=== PATIENT | female | born 1975 | race Caucasian/White ===

== ENCOUNTER → 2017-07-02 | Outpatient (CLI) | payer BC ==
--- NOTE | 2017-07-02 17:06 | XR ---
EXAMINATION TYPE: XR chest 2V DATE OF EXAM: 07/02/2017 COMPARISON: NONE HISTORY: Persistent cough and asthma TECHNIQUE: Frontal and lateral views of the chest are obtained. FINDINGS: There is no focal air space opacity, pleural effusion, or pneumothorax seen. There is bro nchial wall thickening. The cardiac silhouette size is enlarged although patient is rotated. The os seous structures are intact. IMPRESSION: Suspect cardiomegaly. Correlate for reactive airways disease.
== END ==
LOC: RADXRYALE 16:04
PROVIDERS: ATTEND Internal Medicine
DX: J45.41 Moderate persistent asthma with (acute) exacerbation (principal)
CPT/HCPCS: 71020

== ENCOUNTER 2018-03-19 04:32 | Observation (INO) | payer BC, OTHER ==
[2018-03-19] MEDS ORDERED: SODIUM CHLORIDE 0.9% 1,000 ML IV STA (04:59)
[2018-03-19] MEDS ORDERED: KETOROLAC 30 MG/ML 1 ML VIAL IVP STA (04:59)
[2018-03-19] MEDS ORDERED: METOCLOPRAMIDE 5 MG/ML 2 ML VIAL IVP STA (04:59)
--- NOTE | 2018-03-19 05:02 | ED ---
General Adult HPI - General Source: patient, RN notes reviewed Mode of arrival: ambulatory Limitations: no limitations <Obi Rock - Last Filed: 03/19/18 05:00> <Miguel Chavarria - Last Filed: 03/19/18 08:16> - General Chief complaint: Abdominal Pain Stated complaint: gallbladder attack Time Seen by Provider: 03/19/18 04:48 - History of Present Illness Initial comments: Patient is a pleasant 42-year-old female presenting to the emergency Department with abdominal discomfort. Patient has a known history of gallbladder problems. Patient was sent to have her gallbladder removed back in June however was told she needed to bring $1500 with her and did not have a procedure done. Symptoms are similar to previous gallbladder problems. Patient has had previous ultrasound. Patient did eat pizza around 11 PM. Onset of symptoms tonight was around 2 AM. Symptoms have been waxing and waning. Patient has had nausea with one episode of vomiting. Discomfort is right upper abdomen. No radiation. No fevers. (Obi Rock) - Related Data Home Medications Medication Instructions Recorded Confirmed Albuterol Sulfate [Proair Hfa] 1 - 2 puff INHALATION RT-Q6H PRN 04/01/16 Citalopram Hydrobromide 20 mg PO DAILY 04/01/16 07/23/17 [Citalopram HBr] Fluticasone/Salmeterol [Advair 1 puff INHALATION RT-BID 04/01/16 07/23/17 250-50 Diskus] Levothyroxine Sodium [Synthroid] 75 mcg PO DAILY 04/01/16 07/23/17 Metoprolol Succinate (ER) [Toprol 100 mg PO DAILY 04/01/16 07/23/17 Xl] Montelukast [Singulair] 10 mg PO DAILY 04/01/16 07/23/17 Multivitamins, Thera [Multivitamin] 1 tab PO DAILY 04/01/16 07/23/17 Ranitidine HCl [Zantac] 150 mg PO HS 04/01/16 07/23/17 amLODIPine BESYLATE/BENAZEPRIL 1 cap PO DAILY 04/01/16 07/23/17 [Lotrel 5-20 mg Capsule] Previous Rx's Medication Instructions Recorded Ibuprofen [Motrin] 800 mg PO Q6HR PRN #20 tab 04/01/16 Allergies Allergy/AdvReac Type Severity Reaction Status Date / Time latex AdvReac Itching Verified 03/19/18 04:41 Review of Systems ROS Other: All systems not noted in ROS Statement are negative. Constitutional: Denies: fever Eyes: Denies: eye pain ENT: Denies: ear pain Respiratory: Denies: cough Cardiovascular: Denies: chest pain Endocrine: Denies: fatigue Gastrointestinal: Reports: abdominal pain, nausea, vomiting Genitourinary: Denies: dysuria Musculoskeletal: Denies: back pain Skin: Denies: rash Neurological: Denies: headache <Obi Rock Last Filed: 03/19/18 05:00> ROS Other: All systems not noted in ROS Statement are negative. <Miguel Chavarria - Last Filed: 03/19/18 08:16> ROS Statement: Those systems with pertinent positive or pertinent negative responses have been documented in the HPI. Past Medical History Past Medical History: Asthma, Hypertension, Thyroid Disorder History of Any Multi-Drug Resistant Organisms: None Reported Past Surgical History: Orthopedic Surgery Past Psychological History: No Psychological Hx Reported Smoking Status: Former smoker Past Alcohol Use History: Occasional Past Drug Use History: None Reported <Obi Rock Last Filed: 03/19/18 05:00> General Exam Limitations: no limitations General appearance: alert, in no apparent distress Head exam: Present: atraumatic Eye exam: Present: normal appearance Neck exam: Present: normal inspection Respiratory exam: Present: normal lung sounds bilaterally Cardiovascular Exam: Present: regular rate, normal rhythm Expanded Peripheral pulses: 2+: Dorsalis Pedis (R), Dorsalis Pedis (L) GI/Abdominal exam: Present: soft, tenderness (Moderate right upper quadrant tenderness), normal bowel sounds. Absent: distended, guarding, rebound, rigid, pulsatile mass Extremities exam: Present: normal inspection Back exam: Present: normal inspection. Absent: tenderness Neurological exam: Present: alert Psychiatric exam: Present: normal affect, normal mood Skin exam: Present: normal color <Obi Rock Last Filed: 03/19/18 05:00> Vital Signs 03/19/18 03/19/18 03/19/18 04:39 06:01 06:58 Temperature 97.9 F 98.3 F Pulse Rate 69 70 64 Respiratory 18 18 Rate Blood Pressure 194/112 177/81 191/90 O2 Sat by Pulse 100 98 97 Oximetry 08/01/18 07:17 Temperature Pulse Rate 65 Respiratory 18 Rate Blood Pressure 171/74 O2 Sat by Pulse 96 Oximetry Medical Decision Making <Obi Rock - Last Filed: 03/19/18 05:00> - Lab Data Result diagrams: 03/19/18 05:10 03/19/18 05:10 - Radiology Data Radiology results: report reviewed (Review the imaging and report or is evidence of cholelithiasis.), image reviewed <Miguel Chavarria - Last Filed: 03/19/18 08:16> - Medical Decision Making I did reevaluate the patient she still has pain initially was 11 severity she still has moderate pain at this time. The patient was evaluated by the on- call surgeon Dr. Mariscal. The patient was requesting admission today and due to the intractable pain this is reasonable. The patient was examined by Dr. Mariscal patient will be admitted and the patient her are in agreement with this. (Miguel Chavarria) - Lab Data Lab Results 03/19/18 03/19/18 03/19/18 Range/Units 05:10 05:10 05:10 WBC 7.3 (3.8-10.6) k/uL RBC 4.18 (3.80-5.40) m/uL Hgb 12.1 (11.4-16.0) gm/dL Hct 37.3 (34.0-46.0) % MCV 89.3 (80.0-100.0) fL MCH 28.8 (25.0-35.0) pg MCHC 32.3 (31.0-37.0) g/dL RDW 13.5 (11.5-15.5) % Plt Count 289 (150-450) k/uL Neutrophils % 60 % Lymphocytes % 23 % Monocytes % 6 % Eosinophils % 7 % Basophils % 0 % Neutrophils # 4.4 (1.3-7.7) k/uL Lymphocytes # 1.7 (1.0-4.8) k/uL Monocytes # 0.4 (0-1.0) k/uL Eosinophils # 0.5 (0-0.7) k/uL Basophils # 0.0 (0-0.2) k/uL PT 9.8 (9.0-12.0) sec INR 1.0 (<1.2) APTT 31.8 H (22.0-30.0) sec Sodium 140 (137-145) mmol/L Potassium 3.7 (3.5-5.1) mmol/L Chloride 100 (98-107) mmol/L Carbon Dioxide 30 (22-30) mmol/L Anion Gap 10 mmol/L BUN 13 (7-17) mg/dL Creatinine 0.78 (0.52-1.04) mg/dL Est GFR (CKD-EPI)AfAm >90 (>60 ml/min/1.73 sqM) Est GFR (CKD-EPI)NonAf >90 (>60 ml/min/1.73 sqM) Glucose 106 H (74-99) mg/dL Calcium 10.1 (8.4-10.2) mg/dL Total Bilirubin 0.3 (0.2-1.3) mg/dL AST 21 (14-36) U/L ALT 30 (9-52) U/L Alkaline Phosphatase 79 (38-126) U/L Total Protein 7.5 (6.3-8.2) g/dL Albumin 4.7 (3.5-5.0) g/dL Amylase 38 (30-110) U/L Lipase 104 (23-300) U/L Disposition <Obi Rock - Last Filed: 03/19/18 05:00> <Miguel Chavarria - Last Filed: 03/19/18 08:16> Clinical Impression: Intractable abdominal pain, Biliary colic Disposition: ADMITTED IP TO THIS [facility] Condition: Stable Referrals: Marce Childs MD [Primary Care Provider] - 1-2 days
[2018-03-19 05:20] LABS: Basophils % (A) 0 %; Eosinophils # (A) 0.5 k/uL (0-0.7); Eosinophils % (A) 7 %; HCT 37.3 % (34.0-46.0); HGB 12.1 gm/dL (11.4-16.0); Lymphocytes # (A) 1.7 k/uL (1.0-4.8); Lymphocytes % (A) 23 %; MCH 28.8 pg (25.0-35.0); MCHC 32.3 g/dL (31.0-37.0); MCV 89.3 fL (80.0-100.0); Mean Platelet Volume 7.1; Monocytes # (A) 0.4 k/uL (0-1.0); Monocytes % (A) 6 %; Neutrophils # (A) 4.4 k/uL (1.3-7.7); Neutrophils % (A) 60 %; Platelet Count 289 k/uL (150-450); RBC 4.18 m/uL (3.80-5.40); RDW 13.5 % (11.5-15.5); WBC 7.3 k/uL (3.8-10.6)
[2018-03-19 05:33] LABS: Partial Thromboplastin Time 31.8 sec (22.0-30.0); Prothrombin Time 9.8 sec (9.0-12.0)
[2018-03-19 05:36] LABS: ALT 30 U/L (9-52); AST 21 U/L (14-36); Albumin 4.7 g/dL (3.5-5.0); Alkaline Phosphatase 79 U/L (38-126); Amylase 38 U/L (30-110); Anion Gap 10 mmol/L; Blood Urea Nitrogen 13 mg/dL (7-17); Calcium 10.1 mg/dL (8.4-10.2); Carbon Dioxide 30 mmol/L (22-30); Chloride 100 mmol/L (98-107); Glucose 106 mg/dL (74-99); Lipase 104 U/L (23-300); Potassium 3.7 mmol/L (3.5-5.1); Sodium 140 mmol/L (137-145); Total Bilirubin 0.3 mg/dL (0.2-1.3); Total Protein 7.5 g/dL (6.3-8.2)
--- NOTE | 2018-03-19 06:19 | XR ---
EXAM: XR Kub CLINICAL HISTORY: ITS.REASON XR Reason: abdominal pain TECHNIQUE: Upright views abdomen COMPARISON: 07/23/17 FINDINGS/IMPRESSION: Limited by body habitus. Flanks clipped. Bowel gas pattern appears nonobstructive. No subdiaphragmatic free air is seen. Possible organomegaly as on prior. Possible calcified density seen to the right of L4. Urinary tract calculus not excluded. Could correlate with ultrasound and/or CT, as clinically indicated.
[2018-03-19] MEDS ORDERED: HYDROmorphone 1 MG/ML 1 ML SYRINGE IVP STA (06:35)
--- NOTE | 2018-03-19 07:45 | US ---
EXAMINATION TYPE: US gallbladder DATE OF EXAM: 03/19/2018 COMPARISON: US 2017 CLINICAL HISTORY: Pain. RUQ pain and N/V x 1 day, history of cholelithiasis EXAM MEASUREMENTS: Liver Length: 19.3 cm Gallbladder Wall: 0.2 cm CBD: 0.6 cm Right Kidney: 11.6 x 4.7 x 5.6 cm Difficult and limited study due to patient body habitus Pancreas: visualized portions wnl, limited by overlying midline bowel gas Liver: enlarged, course echotexture. This most commonly relates to mild hepatic steatosis and limits evaluation for hepatic masses. Gallbladder: 2.0cm non mobile echogenic shadowing stone seen, wall measures wnl Evidence for sonographic Martinez's sign: yes CBD: Upper limits of normal Right Kidney: wnl IMPRESSION: 1. Cholelithiasis without current sonographic evidence of acute cholecystitis however the common bile duct is upper limits of normal and therefore correlation with serum laboratory values is recommended . 2. As seen on the prior exam of 07/23/2017 sonographic findings suggesting mild degree of hepatic stea tosis.
[2018-03-19 08:13] LABS: Amorphous Sediment,Urine Rare /hpf; Appearance,Urine Clear (Clear); Bilirubin,Urine Negative (Negative); Blood,Urine Moderate (Negative); Color,Urine Yellow; Glucose,Urine (UA) Negative (Negative); Hyaline Casts,Urine 4 /lpf (0-2); Ketones,Urine Negative (Negative); Leukocyte Esterase,Urine Negative (Negative); Mucus,Urine Few /hpf; Nitrite,Urine Negative (Negative); PH, Urine 5.5 (5.0-8.0); Protein,Urine 1+ (Negative); RBC,Urine 8 /hpf (0-5); Specific Gravity,Urine 1.024 (1.001-1.035); Squamous Epithelial Cell,Urine <1 /hpf (0-4); Urobilinogen,Urine <2.0 mg/dL (<2.0); WBC,Urine 1 /hpf (0-5)
[2018-03-19] MEDS ORDERED: NALOXONE 0.4 MG/ML 1 ML VIAL IV PRN (08:16)
[2018-03-19] MEDS ORDERED: ONDANSETRON 4 MG/2 ML VIAL IVP PRN (08:16)
--- NOTE | 2018-03-19 08:19 | ED ---
Medical Decision Making - Lab Data Result diagrams: 03/19/18 05:10 03/19/18 05:10 Lab Results 03/19/18 03/19/18 03/19/18 Range/Units 05:10 05:10 05:10 WBC 7.3 (3.8-10.6) k/uL RBC 4.18 (3.80-5.40) m/uL Hgb 12.1 (11.4-16.0) gm/dL Hct 37.3 (34.0-46.0) % MCV 89.3 (80.0-100.0) fL MCH 28.8 (25.0-35.0) pg MCHC 32.3 (31.0-37.0) g/dL RDW 13.5 (11.5-15.5) % Plt Count 289 (150-450) k/uL Neutrophils % 60 % Lymphocytes % 23 % Monocytes % 6 % Eosinophils % 7 % Basophils % 0 % Neutrophils # 4.4 (1.3-7.7) k/uL Lymphocytes # 1.7 (1.0-4.8) k/uL Monocytes # 0.4 (0-1.0) k/uL Eosinophils # 0.5 (0-0.7) k/uL Basophils # 0.0 (0-0.2) k/uL PT 9.8 (9.0-12.0) sec INR 1.0 (<1.2) APTT 31.8 H (22.0-30.0) sec Sodium 140 (137-145) mmol/L Potassium 3.7 (3.5-5.1) mmol/L Chloride 100 (98-107) mmol/L Carbon Dioxide 30 (22-30) mmol/L Anion Gap 10 mmol/L BUN 13 (7-17) mg/dL Creatinine 0.78 (0.52-1.04) mg/dL Est GFR (CKD-EPI)AfAm >90 (>60 ml/min/1.73 sqM) Est GFR (CKD-EPI)NonAf >90 (>60 ml/min/1.73 sqM) Glucose 106 H (74-99) mg/dL Calcium 10.1 (8.4-10.2) mg/dL Total Bilirubin 0.3 (0.2-1.3) mg/dL AST 21 (14-36) U/L ALT 30 (9-52) U/L Alkaline Phosphatase 79 (38-126) U/L Total Protein 7.5 (6.3-8.2) g/dL Albumin 4.7 (3.5-5.0) g/dL Amylase 38 (30-110) U/L Lipase 104 (23-300) U/L Urine Color Urine Appearance (Clear) Urine pH (5.0-8.0) Ur Specific [place] (1.001-1.035) Urine Protein (Negative) Urine Glucose (UA) (Negative) Urine Ketones (Negative) Urine Blood (Negative) Urine Nitrite (Negative) Urine Bilirubin (Negative) Urine Urobilinogen (<2.0) mg/dL Ur Leukocyte Esterase (Negative) Urine RBC (0-5) /hpf Urine WBC (0-5) /hpf Ur Squamous Epith Cells (0-4) /hpf Amorphous Sediment (None) /hpf Hyaline Casts (0-2) /lpf Urine Mucus (None) /hpf 03/19/18 Range/Units 08:00 WBC (3.8-10.6) k/uL RBC (3.80-5.40) m/uL Hgb (11.4-16.0) gm/dL Hct (34.0-46.0) % MCV (80.0-100.0) fL MCH (25.0-35.0) pg MCHC (31.0-37.0) g/dL RDW (11.5-15.5) % Plt Count (150-450) k/uL Neutrophils % % Lymphocytes % % Monocytes % % Eosinophils % % Basophils % % Neutrophils # (1.3-7.7) k/uL Lymphocytes # (1.0-4.8) k/uL Monocytes # (0-1.0) k/uL Eosinophils # (0-0.7) k/uL Basophils # (0-0.2) k/uL PT (9.0-12.0) sec INR (<1.2) APTT (22.0-30.0) sec Sodium (137-145) mmol/L Potassium (3.5-5.1) mmol/L Chloride (98-107) mmol/L Carbon Dioxide (22-30) mmol/L Anion Gap mmol/L BUN (7-17) mg/dL Creatinine (0.52-1.04) mg/dL Est GFR (CKD-EPI)AfAm (>60 ml/min/1.73 sqM) Est GFR (CKD-EPI)NonAf (>60 ml/min/1.73 sqM) Glucose (74-99) mg/dL Calcium (8.4-10.2) mg/dL Total Bilirubin (0.2-1.3) mg/dL AST (14-36) U/L ALT (9-52) U/L Alkaline Phosphatase (38-126) U/L Total Protein (6.3-8.2) g/dL Albumin (3.5-5.0) g/dL Amylase (30-110) U/L Lipase (23-300) U/L Urine Color Yellow Urine Appearance Clear (Clear) Urine pH 5.5 (5.0-8.0) Ur Specific [place] 1.024 (1.001-1.035) Urine Protein 1+ H (Negative) Urine Glucose (UA) Negative (Negative) Urine Ketones Negative (Negative) Urine Blood Moderate H (Negative) Urine Nitrite Negative (Negative) Urine Bilirubin Negative (Negative) Urine Urobilinogen <2.0 (<2.0) mg/dL Ur Leukocyte Esterase Negative (Negative) Urine RBC 8 H (0-5) /hpf Urine WBC 1 (0-5) /hpf Ur Squamous Epith Cells <1 (0-4) /hpf Amorphous Sediment Rare H (None) /hpf Hyaline Casts 4 H (0-2) /lpf Urine Mucus Few H (None) /hpf Disposition Clinical Impression: Intractable abdominal pain, Biliary colic, Cholelithiasis Disposition: ADMITTED IP TO THIS [facility] Condition: Stable Referrals: Marce Childs MD [Primary Care Provider] - 1-2 days
--- NOTE | 2018-03-19 08:21 | P.GSHP ---
History of Present Illness H&P Date: 03/19/18 Chief Complaint: Right upper quadrant pain This a 42-year-old female who presents to the emergency room with complaints of right upper quadrant pain. Patient states that she has a history of gallstones. Her also performed today shows evidence of cholelithiasis. She states her pain was 11 out of 10. The pain is decreased to 2 out of 10 currently. Past Medical History Past Medical History: Asthma, Hypertension, Thyroid Disorder History of Any Multi-Drug Resistant Organisms: None Reported Past Surgical History: Orthopedic Surgery Past Psychological History: No Psychological Hx Reported Smoking Status: Former smoker Past Alcohol Use History: Occasional Past Drug Use History: None Reported Medications and Allergies Home Medications Medication Instructions Recorded Confirmed Type Albuterol Sulfate [Proair Hfa] 1 - 2 puff INHALATION RT-Q6H PRN 04/01/16 History Citalopram Hydrobromide 20 mg PO DAILY 04/01/16 07/23/17 History [Citalopram HBr] Fluticasone/Salmeterol [Advair 1 puff INHALATION RT-BID 04/01/16 07/23/17 History 250-50 Diskus] Ibuprofen [Motrin] 800 mg PO Q6HR PRN #20 tab 04/01/16 07/23/17 Rx Levothyroxine Sodium [Synthroid] 75 mcg PO DAILY 04/01/16 07/23/17 History Metoprolol Succinate (ER) [Toprol 100 mg PO DAILY 04/01/16 07/23/17 History Xl] Montelukast [Singulair] 10 mg PO DAILY 04/01/16 07/23/17 History Multivitamins, Thera [Multivitamin] 1 tab PO DAILY 04/01/16 07/23/17 History Ranitidine HCl [Zantac] 150 mg PO HS 04/01/16 07/23/17 History amLODIPine BESYLATE/BENAZEPRIL 1 cap PO DAILY 04/01/16 07/23/17 History [Lotrel 5-20 mg Capsule] Allergies Allergy/AdvReac Type Severity Reaction Status Date / Time latex AdvReac Itching Verified 03/19/18 08:20 Surgical - Exam Vital Signs Temp Pulse Resp BP Pulse Ox 97.9 F 69 18 194/112 100 03/19/18 04:39 03/19/18 04:39 03/19/18 04:39 03/19/18 04:39 03/19/18 04:39 - General Morbid obesity BMI 53 well developed, no distress - Eyes PERRL - ENT normal pinna - Neck no masses - Respiratory normal expansion - Cardiovascular Rhythm: regular - Abdomen Mild right quadrant tenderness Abdomen: soft Results - Labs 03/19/18 05:10 03/19/18 05:10 Abnormal Lab Results - Last 24 Hours (Table) 03/19/18 03/19/18 03/19/18 Range/Units 05:10 05:10 08:00 APTT 31.8 H (22.0-30.0) sec Glucose 106 H (74-99) mg/dL Urine Protein 1+ H (Negative) Urine Blood Moderate H (Negative) Urine RBC 8 H (0-5) /hpf Amorphous Sediment Rare H (None) /hpf Hyaline Casts 4 H (0-2) /lpf Urine Mucus Few H (None) /hpf Diabetes panel 03/19/18 Range/Units 05:10 Sodium 140 (137-145) mmol/L Potassium 3.7 (3.5-5.1) mmol/L Chloride 100 (98-107) mmol/L Carbon Dioxide 30 (22-30) mmol/L BUN 13 (7-17) mg/dL Creatinine 0.78 (0.52-1.04) mg/dL Glucose 106 H (74-99) mg/dL Calcium 10.1 (8.4-10.2) mg/dL AST 21 (14-36) U/L ALT 30 (9-52) U/L Alkaline Phosphatase 79 (38-126) U/L Total Protein 7.5 (6.3-8.2) g/dL Albumin 4.7 (3.5-5.0) g/dL Calcium panel 03/19/18 Range/Units 05:10 Calcium 10.1 (8.4-10.2) mg/dL Albumin 4.7 (3.5-5.0) g/dL Pituitary panel 03/19/18 Range/Units 05:10 Sodium 140 (137-145) mmol/L Potassium 3.7 (3.5-5.1) mmol/L Chloride 100 (98-107) mmol/L Carbon Dioxide 30 (22-30) mmol/L BUN 13 (7-17) mg/dL Creatinine 0.78 (0.52-1.04) mg/dL Glucose 106 H (74-99) mg/dL Calcium 10.1 (8.4-10.2) mg/dL Adrenal panel 03/19/18 Range/Units 05:10 Sodium 140 (137-145) mmol/L Potassium 3.7 (3.5-5.1) mmol/L Chloride 100 (98-107) mmol/L Carbon Dioxide 30 (22-30) mmol/L BUN 13 (7-17) mg/dL Creatinine 0.78 (0.52-1.04) mg/dL Glucose 106 H (74-99) mg/dL Calcium 10.1 (8.4-10.2) mg/dL Total Bilirubin 0.3 (0.2-1.3) mg/dL AST 21 (14-36) U/L ALT 30 (9-52) U/L Alkaline Phosphatase 79 (38-126) U/L Total Protein 7.5 (6.3-8.2) g/dL Albumin 4.7 (3.5-5.0) g/dL - Imaging US - abdomen: report reviewed (Cholelithiasis) Assessment and Plan Assessment: The pneumatic lithiasis. Patient will undergo laparoscopic cholecystectomy today.
[2018-03-19] MEDS: SODIUM CHLORIDE 0.9% 1,000 ML IV SCH (09:34)
[2018-03-19] MEDS: PANTOPRAZOLE 40 MG/10 ML VIAL IV SCH (09:35)
[2018-03-19] MEDS: HYDROmorphone 1 MG/ML 1 ML SYRINGE IVP PRN ×2 (10:54→13:58)
[2018-03-19] MEDS ORDERED: IV FLUID CONTINUATION 1,000 ML IV ONE ×2 (16:10)
[2018-03-19] MEDS ORDERED: LACTATED RINGERS 1,000 ML IV ONE (16:23)
[2018-03-19] MEDS ORDERED: HEPARIN SODIUM,PORCINE 5,000 UNIT/ML 1 ML VIAL SQ ONE (16:25)
[2018-03-19] MEDS ORDERED: ceFAZolin IN SWFI 2 GM/20 ML SYRINGE IVP ONE (18:00)
[2018-03-19] MEDS ORDERED: LIDOCAINE 1% INJ 10MG/ML (20 ML MDV) ONE (19:15)
[2018-03-19] MEDS ORDERED: fentaNYL (PF) 50 MCG/ML 2 ML AMP ONE (19:15)
[2018-03-19] MEDS ORDERED: ROCURONIUM BROMIDE 10 MG/ML 10 ML VIAL IV ONE (19:15)
[2018-03-19] MEDS ORDERED: PROPOFOL 10 MG/ML 20 ML VIAL IV ONE (19:15)
[2018-03-19] MEDS ORDERED: MIDAZOLAM 2 MG/2 ML VIAL ONE (19:15)
[2018-03-19] MEDS ORDERED: SUCCINYLCHOLINE CHLORIDE VIAL 200 MG/10 ML VIAL IV ONE (19:15)
[2018-03-19] MEDS ORDERED: GLYCOPYRROLATE 0.2 MG/ML 2 ML VIAL ONE (19:15)
[2018-03-19] MEDS ORDERED: NEOSTIGMINE 1 MG/ML 10 ML VIAL ONE (19:15)
[2018-03-19] MEDS ORDERED: SODIUM CHLORIDE 0.9% 50 ML with ceFAZolin 2,000 MG IV ONE ×2 (19:17)
[2018-03-19] MEDS ORDERED: BUPIVACAIN-EPI 0.5%-1:200,000 30 ML VIAL SQ ONE (19:29)
--- NOTE | 2018-03-19 19:52 | P.OP ---
Date of Procedure: 03/19/18 Preoperative Diagnosis: Cholecystitis Postoperative Diagnosis: Cholecystitis Procedure(s) Performed: Laparoscopic cholecystectomy Anesthesia: JOVANNY Surgeon: Faraz Mariscal Estimated Blood Loss (ml): 5 Pathology: other (Gallbladder) Condition: stable Disposition: PACU Description of Procedure: The patient was placed on the operating table. The patient received a general endotracheal tube anesthesia. The patients abdomen was prepped and draped in the usual sterile fashion. Through an infraumbilical stab incision, the fascia of the anterior abdominal wall was grasped with a pair of Kochers and then the Veress needle was placed in the peritoneal cavity. Position of the Veress needle was confirmed with positive drop test. The abdomen was then insufflated. After adequate insufflation, the 10 mm trocar was placed in the peritoneal cavity. Following this the laparoscope was placed in the peritoneal cavity. The patient was placed in the head-up, right side up position and then a 5 mm trocar was placed in the right lateral and right subcostal position under direct visualization. A 8 mm trocar was placed in the epigastric position. The gallbladder was grasped in the fundus and infundibulum. Traction on the gallbladder was placed in the lateral and the cephalad positions. The triangle of Calot was visualized.. The cystic duct was bluntly dissected until the union of the cystic duct and common bile duct was seen. The cystic duct was then divided and sealed with the Harmonic scissors. A PDS Endoloop was then placed throughout the cystic duct stump. The cystic artery divided and sealed with the Harmonic scissors. The gallbladder was then removed from the liver bed using Harmonic scissors. The gallbladder was then extracted through the epigastric port site. Operative field was checked for any bleeding spots and Harmonic scissors was used to coagulate the liver bed. The abdomen was irrigated. The trocars were removed. The skin was closed using interrupted 3-0 Vicryl suture. Dermabond dressing were applied. The patient tolerated the procedure well.
[2018-03-19] MEDS ORDERED: CITALOPRAM HYDROBROMIDE 20 MG TAB PO SCH (21:45)
[2018-03-19] MEDS ORDERED: MONTELUKAST 10 MG TAB PO SCH (21:45)
[2018-03-19] MEDS ORDERED: MULTIVITAMINS, THERA 1 EACH TAB PO SCH (21:45)
[2018-03-19] MEDS ORDERED: METOPROLOL SUCCINATE (ER) 100 MG TAB.ER.24H PO SCH (21:45)
[2018-03-20] MEDS: HYDROmorphone 1 MG/ML 1 ML SYRINGE IVP PRN (04:01)
[2018-03-20] MEDS: SODIUM CHLORIDE 0.9% 1,000 ML IV SCH (04:56)
[2018-03-20 07:46] VITALS: BP 126/72; PULSE 76; RESP 20; TEMP 98.8
[2018-03-20] MEDS: PANTOPRAZOLE 40 MG/10 ML VIAL IV SCH (09:09)
[2018-03-20] MEDS ORDERED: HYDROcodone/APAP 5-325MG 1 EACH TAB PO PRN (09:58)
[2018-03-20] MEDS ORDERED: ACETAMINOPHEN TAB 325 MG TAB PO PRN (10:11)
--- NOTE | 2018-03-20 12:50 | P.DS ---
Providers Date of admission: 03/19/18 08:17 Expected date of discharge: 03/20/18 Attending physician: Faraz Mariscal Consults: 03/19/18 19:52 Consult Physician Routine Consulting Provider: Becky Garcia Consult Reason/Comments: Medical management Do you want consulting provider notified?: Yes Primary care physician: Marce Childs [facility] Course: This a 42-year-old female who was admitted to hospital with acute cholecystitis. Please see hospital chart for details. Patient did well postoperatively. Procedures: Laparoscopic cholecystectomy Patient Condition at Discharge: Stable Plan - Discharge Summary Discharge Rx Participant: No New Discharge Prescriptions: New Docusate [Colace] 100 mg PO BID #20 capsule HYDROcodone/APAP 7.5-325MG [Keymar 7.5-325] 1 tab PO Q4H PRN 3 Days #18 tab PRN Reason: Pain No Action Ranitidine HCl [Zantac] 150 mg PO HS Multivitamins, Thera [Multivitamin] 1 tab PO HS Montelukast [Singulair] 10 mg PO HS Metoprolol Succinate (ER) [Toprol Xl] 100 mg PO HS Fluticasone/Salmeterol [Advair 250-50 Diskus] 1 puff INHALATION RT-DAILY Levothyroxine Sodium [Synthroid] 75 mcg PO DAILY Citalopram Hydrobromide [Citalopram HBr] 20 mg PO HS Ibuprofen [Motrin] 800 mg PO Q6HR PRN #20 tab PRN Reason: Pain Lisinopril-Hctz 20-25 mg [Zestoretic 20-25] 1 tab PO HS Discharge Medication List Citalopram Hydrobromide [Citalopram HBr] 20 mg PO HS 04/01/16 [History] Fluticasone/Salmeterol [Advair 250-50 Diskus] 1 puff INHALATION RT-DAILY [History] Ibuprofen [Motrin] 800 mg PO Q6HR PRN #20 tab 04/01/16 [Rx] Levothyroxine Sodium [Synthroid] 75 mcg PO DAILY 04/01/16 [History] Metoprolol Succinate (ER) [Toprol Xl] 100 mg PO HS 04/01/16 [History] Montelukast [Singulair] 10 mg PO HS 04/01/16 [History] Multivitamins, Thera [Multivitamin] 1 tab PO HS 04/01/16 [History] Ranitidine HCl [Zantac] 150 mg PO HS 04/01/16 [History] Lisinopril-Hctz 20-25 mg [Zestoretic 20-25] 1 tab PO HS 03/19/18 [History] Docusate [Colace] 100 mg PO BID #20 capsule 03/20/18 [Rx] HYDROcodone/APAP 7.5-325MG [Keymar 7.5-325] 1 tab PO Q4H PRN 3 Days #18 tab 03/20 [Rx] Follow up Appointment(s)/Referral(s): Marce Childs MD [Primary Care Provider] - 1-2 days Faraz Mariscal MD [STAFF PHYSICIAN] - 03/27/18 3:20 pm Activity/Diet/Wound Care/Special Instructions: Regular diet as tolerated. drink fluids. may shower but no tub baths or soaks. leave tape and surgical glue in place. No strenuous activity or heavy lifting. Call office for any fever, chills, increased pain not covered with pain meds, increased redness or discolored drainage from puncture sites or any concerns. Last received tylenol 65 mg at 1040.
--- NOTE | 2018-03-20 16:44 | P.CONS ---
History of Present Illness - Reason for Consult Asthma, hypertension, hypothyroidism - History of Present Illness 42-year-old female admitted for right upper quadrant abdominal pain found to have cholecystitis patient underwent the laparoscopic cholecystectomy. Patient denied any fever chills today patient pain is well-controlled on pain medications patient in any nausea vomiting. Patient did pass gas. A she was resumed on all her home medications with fairly controlled blood pressure. No shortness of breath or wheezing. Review of Systems REVIEW OF SYSTEMS: CONSTITUTIONAL: No fever, no malaise, no fatigue. HEENT: No recent visual problems or hearing problems. Denied any sore throat. CARDIOVASCULAR: No chest pain, orthopnea, PND, no palpitations, no syncope. PULMONARY: No shortness of breath, no cough, no hemoptysis. GASTROINTESTINAL: No diarrhea, no nausea, no vomiting, no abdominal pain. Normoactive bowel sounds. NEUROLOGICAL: No headaches, no weakness, no numbness. HEMATOLOGICAL: Denies any bleeding or petechiae. GENITOURINARY: Denies any burning micturition, frequency, or urgency. MUSCULOSKELETAL/RHEUMATOLOGICAL: Denies any joint pain, swelling, or any muscle pain. ENDOCRINE: Denies any polyuria or polydipsia. The rest of the 14-point review of systems is negative. Past Medical History Past Medical History: Asthma, Hypertension, Thyroid Disorder History of Any Multi-Drug Resistant Organisms: None Reported Past Surgical History: Orthopedic Surgery Past Psychological History: No Psychological Hx Reported Smoking Status: Former smoker Past Alcohol Use History: Occasional Past Drug Use History: None Reported Medications and Allergies Home Medications Medication Instructions Recorded Confirmed Type Citalopram Hydrobromide 20 mg PO HS 04/01/16 03/19/18 History [Citalopram HBr] Fluticasone/Salmeterol [Advair 1 puff INHALATION RT-DAILY 04/01/16 03/19/18 History 250-50 Diskus] Ibuprofen [Motrin] 800 mg PO Q6HR PRN #20 tab 04/01/16 03/19/18 Rx Levothyroxine Sodium [Synthroid] 75 mcg PO DAILY 04/01/16 03/19/18 History Metoprolol Succinate (ER) [Toprol 100 mg PO HS 04/01/16 03/19/18 History Xl] Montelukast [Singulair] 10 mg PO HS 04/01/16 03/19/18 History Multivitamins, Thera [Multivitamin] 1 tab PO HS 04/01/16 03/19/18 History Ranitidine HCl [Zantac] 150 mg PO HS 04/01/16 03/19/18 History Lisinopril-Hctz 20-25 mg 1 tab PO HS 03/19/18 03/19/18 History [Zestoretic 20-25] Docusate [Colace] 100 mg PO BID #20 capsule 03/20/18 Rx HYDROcodone/APAP 7.5-325MG [[place] 1 tab PO Q4H PRN 3 Days #18 tab 03/20/18 Rx 7.5-325] Allergies Allergy/AdvReac Type Severity Reaction Status Date / Time latex AdvReac Itching Verified 03/19/18 16:11 Physical Exam Vitals: Vital Signs Temp Pulse Resp BP Pulse Ox 03/20/18 07:33 98.8 F 76 20 126/72 95 03/20/18 03:55 97.5 F L 92 16 138/82 99 03/20/18 00:40 105 H 18 137/93 98 03/19/18 23:40 104 H 16 143/78 98 03/19/18 22:40 95 18 157/81 95 03/19/18 22:10 99 150/95 100 03/19/18 21:40 97 12 140/81 90 L 03/19/18 21:25 99 12 137/73 90 L 03/19/18 21:10 89 133/77 93 L 03/19/18 20:55 98.8 F 95 12 133/97 90 L 03/19/18 20:32 100 20 113/59 95 03/19/18 20:19 102 H 20 127/60 100 03/19/18 20:05 97.2 F L 112 H 20 131/63 94 L Intake and Output 03/20/18 03/20/18 03/20/18 06:59 14:59 22:59 Intake Total 200 Output Total 450 Balance -250 Intake: Oral 200 Output: Urine 450 Other: # Voids 1 PHYSICAL EXAMINATION: GENERAL: The patient is alert and oriented x3, not in any acute distress. Well developed, well nourished. HEENT: Pupils are round and equally reacting to light. EOMI. No scleral icterus. No conjunctival pallor. Normocephalic, atraumatic. No pharyngeal erythema. No thyromegaly. CARDIOVASCULAR: S1 and S2 present. No murmurs, rubs, or gallops. PULMONARY: Chest is clear to auscultation, no wheezing or crackles. ABDOMEN: Soft, nontender, nondistended, normoactive bowel sounds. No palpable organomegaly. Surgical site appeared to be clean MUSCULOSKELETAL: No joint swelling or deformity. EXTREMITIES: No cyanosis, clubbing, or pedal edema. NEUROLOGICAL: Gross neurological examination did not reveal any focal deficits. SKIN: No rashes. Results CBC & Chem 7: 03/19/18 05:10 03/19/18 05:10 Assessment and Plan Plan: -Asthma without any acute exacerbation will not need any systemic steroids continue with inhaled steroids. Patient can be discharged from medical perspective -Hypertension: Well controlled blood pressure on her home regimen no further recommendations regarding this perspective -Hypothyroidism patient can be resumed on levothyroxine -Cholecystitis status post cholecystectomy: Antibiotic management pain management as per primary service.
[2018-03-20] MEDS ORDERED: FAMOTIDINE 20 MG TAB PO SCH (21:00)
[2018-03-20] MEDS ORDERED: LISINOPRIL-HCTZ 20-25 MG 1 EACH TAB PO SCH (21:00)
[2018-03-21] MEDS ORDERED: LEVOTHYROXINE 75 MCG TAB PO SCH (06:30)
[2018-03-21] MEDS ORDERED: SYMBICORT 80-4.5 MCG INHALER INHALATION SCH (08:00)
== END 2018-03-20 13:23 | disposition home or self-care (01) ==
LOC: EC 04:32 → 6PED 08:17
PROVIDERS: ADMIT Surgery; ATTEND Surgery
DX: K80.12 Calculus of gallbladder with acute and chronic cholecystitis without obstruction (principal); J45.909 Unspecified asthma, uncomplicated; I10 Essential (primary) hypertension; E03.9 Hypothyroidism, unspecified; Z87.891 Personal history of nicotine dependence; Z79.899 Other long term (current) drug therapy; Z79.51 Long term (current) use of inhaled steroids; Z79.890 Hormone replacement therapy; Z91.040 Latex allergy status; E66.01 Morbid (severe) obesity due to excess calories; Z68.43 Body mass index [BMI] 50.0-59.9, adult
CPT/HCPCS: 47562; 96374 ×2; 96361 ×3; 96375 ×5; 96376; 99285; 36415; 88304; 80053; 82150; 83690; 85025; 85610; 85730; 81001; 81025; 74018; 76705; G0378 ×2; J2250; J0330; J1644; J2710; J2765; J2405; J2001; J3010; J1885; J1170 ×2; J0690 ×2; J2704; C9113 ×2

== ENCOUNTER → 2018-12-11 | Outpatient (CLI) | payer OTHER ==
--- NOTE | 2018-12-12 13:24 | MM ---
Reason for exam: screening (asymptomatic). Last mammogram was performed 2 years and 4 months ago. History: Family history of breast cancer in paternal aunt and breast cancer in grandmother. Took hormonal contraceptives for 5 years. Physical Findings: A clinical breast exam by your physician is recommended on an annual basis and results should be correlated with mammographic findings. MG Screening Mammo w CAD Bilateral CC and MLO view(s) were taken. Prior study comparison: August 01, 2016, bilateral MG 3d screening mammo w/cad. August 25, 2011, bilateral digital screening mammo w/CAD. There are scattered fibroglandular densities. There is no discrete abnormality. No significant changes when compared with prior studies. ASSESSMENT: Negative, BI-RAD 1 RECOMMENDATION: Routine screening mammogram of both breasts in 1 year.
== END | disposition home or self-care (01) ==
LOC: RADMAMWWP 07:40
PROVIDERS: ATTEND Internal Medicine
DX: Z12.31 Encounter for screening mammogram for malignant neoplasm of breast (principal)
CPT/HCPCS: 77067

== ENCOUNTER → 2020-07-25 | Outpatient (CLI) | payer OTHER | END | disposition home or self-care (01) | LOC: LABWHC1 13:26 | PROVIDERS: ATTEND Internal Medicine | DX: Z20.828 Contact with and (suspected) exposure to other viral communicable diseases (principal) | CPT/HCPCS: U0003; C9803 ==

== ENCOUNTER → 2020-09-02 | Outpatient (CLI) | payer BC ==
--- NOTE | 2020-09-05 08:31 | MM ---
Reason for exam: screening (asymptomatic). Last mammogram was performed 1 year and 9 months ago. History: Family history of breast cancer in paternal aunt and breast cancer in grandmother. Took hormonal contraceptives for 5 years. Physical Findings: A clinical breast exam by your physician is recommended on an annual basis and results should be correlated with mammographic findings. MG 3D Screening Mammo W/Cad Bilateral CC and MLO view(s) were taken. XCCL view(s) were taken of the left breast. Prior study comparison: December 11, 2018, bilateral MG screening mammo w CAD. August 01, 2016, bilateral MG 3d screening mammo w/cad. There are scattered fibroglandular densities. Prominent axillary nodes on both sides are unchanged. No significant changes when compared with prior studies. ASSESSMENT: Benign, BI-RAD 2 RECOMMENDATION: Routine screening mammogram of both breasts in 1 year.
== END | disposition home or self-care (01) ==
LOC: RADMAMWWP 10:47
PROVIDERS: ATTEND Internal Medicine
DX: Z12.31 Encounter for screening mammogram for malignant neoplasm of breast (principal)
CPT/HCPCS: 77063; 77067

== ENCOUNTER 2020-12-03 09:35 | Emergency (ER) | payer BC ==
[2020-12-03 09:45] VITALS: BP 165/82; PULSE 69; RESP 18; TEMP 97.9
[2020-12-03] MEDS ORDERED: CEPHALEXIN 500MG STARTER PACK 4 CAP BTL PO STA (10:10)
--- NOTE | 2020-12-03 10:43 | XR ---
EXAMINATION TYPE: XR tibia fibula LT DATE OF EXAM: 12/03/2020 CLINICAL HISTORY: Fall injury with pain TECHNIQUE: Two views of the left leg are obtained. COMPARISON: None. FINDINGS: There is no acute fracture or dislocation seen in the left tibia or fibula. Mild to modera te tricompartment joint space loss and mild spurring in the left knee. Visualized portion of the left ankle joint appears within normal limits. Mild to moderate diffuse subcutaneous edema is present. IMPRESSION: There is no acute fracture or dislocation seen in the left tibia or fibula.
--- NOTE | 2020-12-03 10:44 | XR ---
EXAMINATION TYPE: XR wrist complete RT DATE OF EXAM: 12/03/2020 CLINICAL HISTORY: Falling injury with pain TECHNIQUE: Frontal, lateral and oblique images of the right wrist are obtained. 4 view scaphoid vie w is performed. COMPARISON: None FINDINGS: There is no acute fracture/dislocation evident in the right wrist. The joint spaces in th e right wrist appear within normal limits. The overlying soft tissue appears unremarkable. IMPRESSION: There is no acute fracture or dislocation in the right wrist.
--- NOTE | 2020-12-03 10:52 | ED ---
Upper Extremity HPI - General Chief Complaint: Extremity Injury, Upper Stated Complaint: Fall, extremity injury Time Seen by Provider: 12/03/20 09:54 Source: patient Mode of arrival: ambulatory Limitations: no limitations - History of Present Illness Initial Comments: 45-year-old female presenting today for chief complaint of right wrist pain after fall 1 week ago. Patient states she fell week ago she states her right wrist is still sore. Patient states that she was just walking and tripped and fell. Patient states she extended her right wrist she states she also hit her right lower leg, patient states she sustained a small abrasion which now has some surrounding redness. Patient states that her main concern was her right wrist she denies any head injury injury to the neck chest abdomen left upper extremity or right lower extremity. pt ate that she does not have any difficulty ambulating. Patient remaining of review systems negative upon arrival patient appears well nontoxic in no acute distress - Related Data Home Medications Medication Instructions Recorded Confirmed Citalopram Hydrobromide 20 mg PO HS 04/01/16 03/19/18 [Citalopram HBr] Fluticasone/Salmeterol [Advair 1 puff INHALATION RT-DAILY 04/01/16 03/19/18 250-50 Diskus] Levothyroxine Sodium [Synthroid] 75 mcg PO DAILY 04/01/16 03/19/18 Metoprolol Succinate (ER) [Toprol 100 mg PO HS 04/01/16 03/19/18 Xl] Montelukast [Singulair] 10 mg PO HS 04/01/16 03/19/18 Multivitamins, Thera [Multivitamin] 1 tab PO HS 04/01/16 03/19/18 Ranitidine HCl [Zantac] 150 mg PO HS 04/01/16 03/19/18 Lisinopril-Hctz 20-25 mg 1 tab PO HS 03/19/18 03/19/18 [Zestoretic 20-25] Previous Rx's Medication Instructions Recorded Ibuprofen [Motrin] 800 mg PO Q6HR PRN #20 tab 04/01/16 Docusate [Colace] 100 mg PO BID #20 capsule 03/20/18 HYDROcodone/APAP 7.5-325MG [[place] 1 tab PO Q4H PRN 3 Days #18 tab 03/20/18 7.5-325] Cephalexin [Keflex] 500 mg PO Q6HR 7 Days #28 cap 12/03/20 Allergies Allergy/AdvReac Type Severity Reaction Status Date / Time latex AdvReac Itching Verified 12/03/20 09:42 Review of Systems ROS Statement: Those systems with pertinent positive or pertinent negative responses have been documented in the HPI. ROS Other: All systems not noted in ROS Statement are negative. Past Medical History Past Medical History: Asthma, Hypertension, Thyroid Disorder History of Any Multi-Drug Resistant Organisms: None Reported Past Surgical History: Orthopedic Surgery Past Psychological History: Anxiety Smoking Status: Former smoker Past Alcohol Use History: Occasional Past Drug Use History: None Reported General Exam - General Exam Comments Initial Comments: General: The patient is awake and alert, in no distress Eye: +3 mm pupils are equal, round and reactive to light, extra-ocular movements are intact. No nystagmus. There is normal conjunctiva bilaterally. No signs of icterus. Ears, nose, mouth and throat: There are moist mucous membranes and no oral lesions. Neck: The neck is supple, there is no tenderness or JVD. Cardiovascular: There is a regular rate and rhythm. No murmur, rub or gallop is appreciated. Respiratory: Lungs are clear to auscultation, respirations are non-labored, breath sounds are equal. No wheezes, stridor, rales, or rhonchi. Gastrointestinal: Soft, non-distended, non-tender abdomen without masses or organomegaly noted. There is no rebound or guarding present. Musculoskeletal: There is some proximal tibial's bruising, there is no obvious swelling, there is no wrist sweling of the right wrist or anatomical snuff box tenderness. Normal ROM of the wrists, knees and ankles b/l. can weight bear b/l. Strength 5/5. Sensation intact. Radial and DP pulses equal bilaterally 2+. Neurological: A&O x 3. CN II-XII intact grossly, There are no obvious motor or sensory deficits. Coordination appears grossly intact. Speech is normal. Skin: Skin is warm and dry. Small abrasion Psychiatric: Cooperative, appropriate mood & affect, normal judgment. Limitations: no limitations Course Vital Signs 12/03/20 09:42 Temperature 97.9 F Pulse Rate 69 Respiratory 18 Rate Blood Pressure 165/82 O2 Sat by Pulse 97 Oximetry Medical Decision Making - Medical Decision Making 45-year-old female presenting for chief complaint of fall imaging studies are negative for acute osseous process. Patient is weightbearing ambulating and has no anatomical snuffbox tenderness. She does have evidence of some faint redness surrounding a small abrasion over the left lower leg concerning for developing cellulitis patient denies fevers chills general malaise and overall appears nontoxic at this time and will be placed on oral abx with pcp f/u. if pain in right wrist persists she is to follow-up with orthopedic surgery patient is agreeable to this care plan as well as discharge at this time. Disposition Clinical Impression: Cellulitis of left lower leg, Right wrist pain, Left leg pain, Fall Disposition: HOME SELF-CARE Condition: Good Instructions (If sedation given, give patient instructions): Wrist Sprain (ED) Additional Instructions: Please use medication as discussed. Please follow-up with family doctor in the next 2 days. If pain persists follow-up with orthopedic surgery. Please return to emergency room if the symptoms increase or worsen or for any other concerns. Prescriptions: Cephalexin [Keflex] 500 mg PO Q6HR 7 Days #28 cap Is patient prescribed a controlled substance at d/c from ED?: No Referrals: Marce Childs MD [Primary Care Provider] - 1-2 days Time of Disposition: 10:51
== END 2020-12-03 11:04 | disposition home or self-care (01) ==
LOC: EC 09:35
DX: S80.12XA Contusion of left lower leg, initial encounter (principal); L03.116 Cellulitis of left lower limb; M25.531 Pain in right wrist; J45.909 Unspecified asthma, uncomplicated; I10 Essential (primary) hypertension; F41.9 Anxiety disorder, unspecified; Z87.891 Personal history of nicotine dependence; Z79.51 Long term (current) use of inhaled steroids; W01.10XA Fall on same level from slipping, tripping and stumbling with subsequent striking against unspecified object, initial encounter; Y93.01 Activity, walking, marching and hiking
CPT/HCPCS: 99284

== ENCOUNTER → 2022-03-23 | Outpatient (CLI) | payer BC ==
[2022-03-23 18:32] LABS: Basophils # (A) 0.05 X 10*3/uL (0.00-0.10); Basophils % (A) 0.7 %; Eosinophils # (A) 0.33 X 10*3/uL (0.04-0.35); Eosinophils % (A) 4.9 %; HCT 38.4 % (37.2-46.3); HGB 12.3 g/dL (12.0-15.0); Immature Grans, Automated 0.3 %; Lymphocytes # (A) 1.75 X 10*3/uL (0.90-5.00); Lymphocytes % (A) 25.8 %; MCH 29.9 pg (27.0-32.0); MCV 93.4 fL (80.0-97.0); Mean Platelet Volume 10.1 fL (9.5-12.2); Monocytes % (A) 8.9 %; NRBC Per 100 WBC 0 /100 WBCS (0.0-0.0); Neutrophils # (A) 4.02 X 10*3/uL (1.80-7.70); Neutrophils % (A) 59.4 %; Platelet Count 311 X 10*3/uL (140-440); RBC 4.11 X 10*6/uL (4.10-5.20); RDW 13.5 % (11.5-14.5); WBC 6.77 X 10*3/uL (4.50-10.00)
[2022-03-23 18:49] LABS: Albumin 4.7 g/dL (3.8-4.9); Albumin/Globulin Ratio 1.5 (1.60-3.17); Anion Gap 13.1 mmol/L (10.00-18.00); BUN/Creat Ratio 15.5 Ratio (12.00-20.00); Blood Urea Nitrogen 13.9 mg/dL (9.0-27.0); Calcium 10.3 mg/dL (8.7-10.3); Carbon Dioxide 25.9 mmol/L (20.0-27.5); Globulin 3.2 g/dL (1.6-3.3); Non-African American GFR(CKD) 75.9 (60.0-200.0); T4, Free (Free Thyroxine) 1.51 ng/dL (0.800-1.800); Total Bilirubin 0.6 mg/dL (0.30-1.20); Total Protein 7.9 g/dL (6.2-8.2)
== END | disposition home or self-care (01) ==
LOC: LABWHC1 10:42
PROVIDERS: ATTEND Internal Medicine
DX: Z00.01 Encounter for general adult medical examination with abnormal findings (principal); E78.00 Pure hypercholesterolemia, unspecified; E03.9 Hypothyroidism, unspecified; F41.1 Generalized anxiety disorder
CPT/HCPCS: 36415; 80053; 84439; 84443; 85025

== ENCOUNTER → 2022-06-04 | Outpatient (CLI) | payer BC ==
--- NOTE | 2022-06-04 17:15 | MM ---
Reason for Exam: Screening (asymptomatic). Last mammogram was performed 1 year(s) and 9 month(s) ago. Patient History: Menarche at age 9. First Full-Term at age 24. Patient used Hormonal Contraceptives for 5 years. Paternal grandmother had breast cancer, age 74. Paternal aunt had breast cancer, age 50. Last menstrual period: 05/21/2022 Risk Values: Lashell 5 year model risk: 1.1%. NCI Lifetime model risk: 11.0%. Prior Study Comparison: 08/01/2016 Bilateral Screening Mammogram, [facility]. 12/11/2018 Bilateral Screening Mammogram, [facility]. 09/02/2020 Bilateral Screening Mammogram, [facility]. Tissue Density: The breast tissue is almost entirely fat. Findings: Analyzed By CAD. At the 6:00 position of the left breast seen only on the CC view there is in the posterior position in area of asymmetric density approximately 11 to 12 cm from the nipple, spot compression view recommended. Overall Assessment: Incomplete: need additional imaging evaluation, BI-RAD 0 Management: Special View Mammogram of the left breast. A clinical breast exam by your physician is recommended on an annual basis and results should be correlated with mammographic findings. Electronically signed and approved by: Babatunde Borja M.D. Radiologis
== END | disposition home or self-care (01) ==
LOC: RADMAMWWP 07:00
PROVIDERS: ATTEND Internal Medicine
DX: Z12.31 Encounter for screening mammogram for malignant neoplasm of breast (principal); Z80.3 Family history of malignant neoplasm of breast
CPT/HCPCS: 77063; 77067

== ENCOUNTER → 2022-06-08 | Outpatient (CLI) | payer BC ==
--- NOTE | 2022-06-08 10:52 | MM ---
Reason for Exam: Additional evaluation requested from abnormal screening. Last screening mammogram was performed less than 1 month ago. Patient History: Menarche at age 9. First Full-Term at age 24. Patient used Hormonal Contraceptives for 5 years. Paternal grandmother had breast cancer, age 74. Paternal aunt had breast cancer, age 50. Risk Values: Lashell 5 year model risk: 1.1%. NCI Lifetime model risk: 11.0%. Prior Study Comparison: 12/11/2018 Bilateral Screening Mammogram, [facility]. 09/02/2020 Bilateral Screening Mammogram, [facility]. 06/04/2022 Bilateral MG 3D screening mammo w/cad, [facility]. Tissue Density: Left: The breast tissue is almost entirely fat. Findings: Analyzed By CAD. Area within the left breast posterior depth 12 cm from nipple measuring approximately 12 mm of increased asymmetric fibroglandular tissue that has been steadily increasing in conspicuity from 2012. No suspicious calcifications or other masses or distortions. Overall Assessment: Incomplete: need additional imaging evaluation, BI-RAD 0 Management: Diagnostic Breast Ultrasound of the left breast. A clinical breast exam by your physician is recommended on an annual basis and results should be correlated with mammographic findings. This exam should not preclude additional follow-up of suspicious palpable abnormalities. Results were given to the patient verbally at the time of exam. Electronically signed and approved by: Miguel Sanchez DO
--- NOTE | 2022-06-08 11:54 | USB ---
Reason for Exam: Additional evaluation requested from abnormal screening. Patient History: Menarche at age 9. First Full-Term at age 24. Patient used Hormonal Contraceptives for 5 years. Paternal grandmother had breast cancer, age 74. Paternal aunt had breast cancer, age 50. Risk Values: Lashell 5 year model risk: 1.1%. NCI Lifetime model risk: 11.0%. Technique: Method: Targeted. Prior Study Comparison: 12/11/2018 Bilateral Screening Mammogram, [facility]. 09/02/2020 Bilateral Screening Mammogram, [facility]. 06/04/2022 Bilateral MG 3D screening mammo w/cad, [facility]. Findings: The upper inner quadrant of the left breast, the axilla of the left breast and the retroareolar of the left breast were scanned. The inner upper quadrant was scanned along with the retroareolar region and axilla. No suspicious masses identified to correlate with mammographic findings. Overall Assessment: Benign, BI-RAD 2 Management: Screening Mammogram of both breasts in 1 year. A clinical breast exam by your physician is recommended on an annual basis and results should be correlated with mammographic findings. This exam should not preclude additional follow-up of suspicious palpable abnormalities. ??Results were given to the patient verbally at the time of exam. Electronically signed and approved by: Miguel Sanchez, DO
== END | disposition home or self-care (01) ==
LOC: RADMAMWWP 10:22
PROVIDERS: ATTEND Internal Medicine
DX: R92.8 Other abnormal and inconclusive findings on diagnostic imaging of breast (principal); Z80.3 Family history of malignant neoplasm of breast
CPT/HCPCS: 77061; 77065

== ENCOUNTER → 2022-09-14 | Outpatient (CLI) | payer BC ==
[2022-09-14 18:49] LABS: Basophils # (A) 0.04 X 10*3/uL (0.00-0.10); Basophils % (A) 0.5 %; Eosinophils # (A) 0.31 X 10*3/uL (0.04-0.35); Eosinophils % (A) 4.3 %; HCT 34.6 % (37.2-46.3); HGB 10.9 g/dL (12.0-15.0); Immature Grans, Automated 0.3 %; Lymphocytes # (A) 1.82 X 10*3/uL (0.90-5.00); MCH 30.2 pg (27.0-32.0); MCHC 31.5 g/dL (32.0-37.0); MCV 95.8 fL (80.0-97.0); Mean Platelet Volume 10.2 fL (9.5-12.2); Monocytes # (A) 0.54 X 10*3/uL (0.20-1.00); Monocytes % (A) 7.4 %; NRBC Per 100 WBC 0 /100 WBCS (0.0-0.0); Neutrophils # (A) 4.55 X 10*3/uL (1.80-7.70); Neutrophils % (A) 62.5 %; Platelet Count 281 X 10*3/uL (140-440); RBC 3.61 X 10*6/uL (4.10-5.20); RDW 13.2 % (11.5-14.5); WBC 7.28 X 10*3/uL (4.50-10.00)
[2022-09-14 19:10] LABS: ALT 20 U/L (8-44); AST 20 U/L (13-35); African American GFR (CKD) 99.7 (60.0-200.0); Albumin/Globulin Ratio 1.63 (1.60-3.17); Alkaline Phosphatase 84 U/L (41-126); BUN/Creat Ratio 12.18 Ratio (12.00-20.00); Blood Urea Nitrogen 9.8 mg/dL (9.0-27.0); Calcium 10.2 mg/dL (8.7-10.3); Carbon Dioxide 25.6 mmol/L (20.0-27.5); Chloride 97 mmol/L (96-109); Chol/HDL Ratio 4.99 Ratio; Globulin 3.1 g/dL (1.6-3.3); Glucose 79 mg/dL (70-110); LDL Cholesterol,Calculated 133.5 mg/dL (0.0-131.0); Non-African American GFR(CKD) 86.1 (60.0-200.0); Potassium 3.6 mmol/L (3.5-5.5); Sodium 136 mmol/L (135-145)
== END | disposition home or self-care (01) ==
LOC: LABWHC1 10:27
PROVIDERS: ATTEND Internal Medicine
DX: Z00.01 Encounter for general adult medical examination with abnormal findings (principal); E78.00 Pure hypercholesterolemia, unspecified; E03.9 Hypothyroidism, unspecified; I10 Essential (primary) hypertension; E66.01 Morbid (severe) obesity due to excess calories; F41.1 Generalized anxiety disorder
CPT/HCPCS: 36415; 80053; 80061; 84439; 84443; 85025

== ENCOUNTER → 2022-11-06 | Outpatient (CLI) | payer BC ==
--- NOTE | 2022-11-06 11:04 | XR ---
EXAMINATION TYPE: XR chest 2V DATE OF EXAM: 11/06/2022 COMPARISON: 07/02/2017 TECHNIQUE: PA and lateral views submitted. HISTORY: Shortness of breath with hemoptysis FINDINGS: The lungs are clear and there is no pneumothorax, pleural effusion, or focal pneumonia. Heart size normal and no overt failure. Osseous structures demonstrate hypertrophic and degenerative changes of the spine. Mild hyperinflation. IMPRESSION: 1. No acute process.
== END | disposition home or self-care (01) ==
LOC: RADXRYALE 10:33
PROVIDERS: ATTEND Internal Medicine
DX: J98.01 Acute bronchospasm (principal); R04.2 Hemoptysis; R06.02 Shortness of breath
CPT/HCPCS: 71046

== ENCOUNTER → 2023-06-29 | Outpatient (CLI) | payer BC ==
[2023-06-29 23:00] LABS: Basophils # (A) 0.04 X 10*3/uL (0.00-0.10); Basophils % (A) 0.6 %; Eosinophils # (A) 0.31 X 10*3/uL (0.04-0.35); Eosinophils % (A) 4.5 %; HGB 12.4 g/dL (12.0-15.0); Lymphocytes # (A) 1.91 X 10*3/uL (0.90-5.00); Lymphocytes % (A) 27.9 %; MCH 30.5 pg (27.0-32.0); MCHC 31.8 g/dL (32.0-37.0); MCV 96.1 FL (80.0-97.0); Mean Platelet Volume 10.1 FL (9.5-12.2); Monocytes # (A) 0.54 X 10*3/uL (0.20-1.00); Monocytes % (A) 7.9 %; NRBC Per 100 WBC 0 X 10*3/uL (0.00-0.01); Neutrophils # (A) 4.02 X 10*3/uL (1.80-7.70); Neutrophils % (A) 58.8 %; Platelet Count 310 X 10*3/uL (140-440); RBC 4.06 X 10*6/uL (4.10-5.20); RDW 13.3 % (11.5-14.5); WBC 6.84 X 10*3/uL (4.50-10.00)
[2023-06-29 23:40] LABS: ALT 22 U/L (8-44); AST 16 U/L (13-35); Albumin 4.7 g/dL (3.8-4.9); Albumin/Globulin Ratio 1.88 Ratio (1.60-3.17); Alkaline Phosphatase 70 U/L (41-126); BUN/Creat Ratio 16.91 Ratio (12.00-20.00); Blood Urea Nitrogen 18.6 mg/dL (9.0-27.0); Calcium 10.5 mg/dL (8.7-10.3); Carbon Dioxide 28.4 mmol/L (21.6-31.8); Chloride 97 mmol/L (96-109); Chol/HDL Ratio 5.68 Ratio; Globulin 2.5 g/dL (1.6-3.3); Glucose 98 mg/dL (70-110); LDL Cholesterol,Calculated 129.7 mg/dL (0.0-131.0); Potassium 4.4 mmol/L (3.5-5.5); Sodium 137 mmol/L (135-145); Total Bilirubin 0.4 mg/dL (0.3-1.2); Total Protein 7.2 g/dL (6.2-8.2)
== END | disposition home or self-care (01) ==
LOC: LABWHC1 10:20
PROVIDERS: ATTEND Internal Medicine
DX: I10 Essential (primary) hypertension (principal); E78.00 Pure hypercholesterolemia, unspecified; E03.9 Hypothyroidism, unspecified
CPT/HCPCS: 36415; 80053; 80061; 84443; 85025

== ENCOUNTER → 2024-01-28 | Outpatient (CLI) | payer BC ==
[2024-01-28 14:59] LABS: HCT 37.5 % (37.2-46.3); HGB 12.2 g/dL (12.0-15.0); MCH 30.5 pg (27.0-32.0); MCHC 32.5 g/dL (32.0-37.0); MCV 93.8 FL (80.0-97.0); Mean Platelet Volume 9.9 FL (9.5-12.2); NRBC Per 100 WBC 0 X 10*3/uL (0.00-0.01); Platelet Count 293 X 10*3/uL (140-440); RDW 13.3 % (11.5-14.5); WBC 8.05 X 10*3/uL (4.50-10.00)
[2024-01-28 15:00] LABS: Basophils # (A) 0.05 X 10*3/uL (0.00-0.10); Basophils % (A) 0.6 %; Eosinophils # (A) 0.45 X 10*3/uL (0.04-0.35); Eosinophils % (A) 5.6 %; Lymphocytes # (A) 1.88 X 10*3/uL (0.90-5.00); Lymphocytes % (A) 23.4 %; Monocytes % (A) 7.5 %; Neutrophils # (A) 5.04 X 10*3/uL (1.80-7.70); Neutrophils % (A) 62.5 %
[2024-01-28 15:07] LABS: ALT 26 U/L (8-44); AST 16 U/L (13-35); Albumin 4.7 g/dL (3.8-4.9); Albumin/Globulin Ratio 1.96 Ratio (1.60-3.17); Alkaline Phosphatase 74 U/L (41-126); Blood Urea Nitrogen 19.9 mg/dL (9.0-27.0); Calcium 9.8 mg/dL (8.7-10.3); Carbon Dioxide 25.9 mmol/L (21.6-31.8); Chloride 100 mmol/L (96-109); Chol/HDL Ratio 5.65 Ratio; Globulin 2.4 g/dL (1.6-3.3); Glucose 94 mg/dL (70-110); LDL Cholesterol,Calculated 136.9 mg/dL (0.0-131.0); Potassium 4.5 mmol/L (3.5-5.5); Sodium 139 mmol/L (135-145); Total Bilirubin 0.4 mg/dL (0.3-1.2); Total Protein 7.1 g/dL (6.2-8.2)
== END | disposition home or self-care (01) ==
LOC: LABWHC1 08:34
PROVIDERS: ATTEND Internal Medicine
DX: I10 Essential (primary) hypertension (principal); E03.9 Hypothyroidism, unspecified; E78.00 Pure hypercholesterolemia, unspecified
CPT/HCPCS: 36415; 80053; 80061; 84443; 85025

== ENCOUNTER → 2024-01-28 | Outpatient (CLI) | payer BC ==
--- NOTE | 2024-01-29 13:07 | MM ---
Reason for Exam: Screening (asymptomatic). Last mammogram was performed 1 year(s) and 8 month(s) ago. Patient History: Menarche at age 9. First Full-Term at age 24. Patient used Hormonal Contraceptives for 5 years. Paternal grandmother had breast cancer, age 74. Paternal aunt had breast cancer, age 50. Last menstrual period: 01/06/2024 Risk Values: Lashell 5 year model risk: 1.2%. NCI Lifetime model risk: 10.8%. Prior Study Comparison: 09/02/2020 Bilateral Screening Mammogram, [facility]. 06/04/2022 Bilateral MG 3D screening mammo w/cad, [facility]. 06/08/2022 Left MG 3D work up w/cad , [facility]. Tissue Density: The breasts are heterogeneously dense, which may obscure small masses. Findings: Analyzed By CAD. There is no suspicious group of microcalcifications or new suspicious mass in either breast. Overall Assessment: Benign, BI-RAD 2 Management: Screening Mammogram of both breasts in 1 year. . Patient should continue monthly self-breast exams. A clinical breast exam by your physician is recommended on an annual basis. This exam should not preclude additional follow-up of suspicious palpable abnormalities. Note on Lashell scores and lifetime risk: 1. A Lashell score greater than 3% is considered moderate risk. If this is the case, consider specialist referral to assess eligibility for a risk reducing agent. 2. If overall lifetime risk for the development of breast cancer is 20% or higher, the patient may qualify for future screening with alternating mammogram and breast MRI. Electronically signed and approved by: Armando Abdul M.D. Radiologis
== END | disposition home or self-care (01) ==
LOC: RADMAMWWP 08:13
PROVIDERS: ATTEND Internal Medicine
DX: Z12.31 Encounter for screening mammogram for malignant neoplasm of breast (principal); Z80.3 Family history of malignant neoplasm of breast
CPT/HCPCS: 77063; 77067

== ENCOUNTER → 2024-07-29 | Outpatient (CLI) | payer OTHER ==
--- NOTE | 2024-07-31 18:58 | CT ---
EXAMINATION TYPE: CT knee LT wo con DATE OF EXAM: 07/31/2024 6:41 AM COMPARISON: None. CLINICAL INDICATION: Female, 49 years old with history of M17.12 OA LEFT KNEE, Pre op [facility] protocol f or left knee. TECHNIQUE: [facility] presurgical planning of the left knee. Images were obtained in the axial plane at 2 m m thick sections through the hip and ankle and 1 mm thick sections through the knee. Reconstructed im ages in the coronal and sagittal plane are reviewed. Contrast used: mL of , (none if empty) Oral contrast used: (none if empty) CT DLP: 1467 mGycm, Automated exposure control for dose reduction was used. FINDINGS: Hip: Femoral head articulates with the acetabulum. Joint space is preserved. Knee: Left knee: There is loss of the medial compartment joint space. There is narrowing of lateral c ompartment joint space. Medial and lateral femoral condylar spurring is present. Some mild lateral ti bial plateau spurring is present. Note is made of degenerative changes within the medial compartment right knee is well. Some degenerat dina change lateral compartment right knee. Ankle: Some joint space narrowing through the ankle mortise is present. No acute fractures evident. IMPRESSION: 1. CT for [facility] knee presurgical planning. [facility], , 07/31/2024 6:56 PM
== END | disposition home or self-care (01) ==
LOC: RADCTMAIN 16:07
PROVIDERS: ATTEND Orthopaedic Surgery
DX: Z01.818 Encounter for other preprocedural examination (principal); M17.0 Bilateral primary osteoarthritis of knee

== ENCOUNTER → 2024-08-17 | Outpatient (CLI) | payer OTHER ==
[2024-08-17 09:40] LABS: INR 0.9 (<1.2); Partial Thromboplastin Time 30.2 sec (22.0-30.0); Prothrombin Time 10.3 sec (10.0-12.5)
[2024-08-17 15:30] LABS: ALT 59 U/L (8-44); AST 28 U/L (13-35); Albumin 4.3 g/dL (3.8-4.9); Albumin/Globulin Ratio 1.95 Ratio (1.60-3.17); Alkaline Phosphatase 91 U/L (41-126); BUN/Creat Ratio 19.67 Ratio (12.00-20.00); Blood Urea Nitrogen 17.7 mg/dL (9.0-27.0); Calcium 9.8 mg/dL (8.7-10.3); Carbon Dioxide 29.3 mmol/L (21.6-31.8); Chloride 93 mmol/L (96-109); Globulin 2.2 g/dL (1.6-3.3); Glucose 94 mg/dL (70-110); Potassium 4.1 mmol/L (3.5-5.5); Sodium 131 mmol/L (135-145); Total Bilirubin 0.3 mg/dL (0.3-1.2); Total Protein 6.5 g/dL (6.2-8.2)
[2024-08-17 15:33] LABS: HCT 34.6 % (37.2-46.3); HGB 10.8 g/dL (12.0-15.0); MCH 30.7 pg (27.0-32.0); MCHC 31.2 g/dL (32.0-37.0); MCV 98.3 FL (80.0-97.0); Mean Platelet Volume 9.5 FL (9.5-12.2); NRBC Per 100 WBC 0 X 10*3/uL (0.00-0.01); Platelet Count 274 X 10*3/uL (140-440); RBC 3.52 X 10*6/uL (4.10-5.20); RDW 13.4 % (11.5-14.5); WBC 7.66 X 10*3/uL (4.50-10.00)
== END | disposition home or self-care (01) ==
LOC: LABWHC1 08:54
PROVIDERS: ATTEND Orthopaedic Surgery
DX: Z01.818 Encounter for other preprocedural examination (principal); M17.12 Unilateral primary osteoarthritis, left knee; R00.1 Bradycardia, unspecified; Z22.322 Carrier or suspected carrier of Methicillin resistant Staphylococcus aureus
CPT/HCPCS: 36415; 80053; 83036; 85027; 85610; 85730; 87070; 93005

== ENCOUNTER 2024-08-28 07:14 | Day surgery (SDC) | payer OTHER ==
[~2024-08-28 07:14] MED LIST: TRANEXAMIC 1,000 MG/100ML-NACL 1,000 MG in SALINE 1 100ML.BAG IV PRN; TRANEXAMIC 1,000 MG/100ML-NACL 1,000 MG in SALINE 1 100ML.BAG IVPB PRN; VANCOMYCIN 1,000 MG in SODIUM CHLORIDE 0.9% 250 ML IVPB PRN
[2024-08-28] MEDS: LACTATED RINGERS 1,000 ML IV SCH (08:21)
[2024-08-28] MEDS: DOCUSATE 100 MG CAP PO PRN (08:27)
[2024-08-28] MEDS: oxyCODONE ER 10 MG TAB.ER.12H PO PRN (08:27)
[2024-08-28] MEDS: ACETAMINOPHEN TAB 500 MG TAB PO PRN (08:27)
[2024-08-28] MEDS: DEXAMETHASONE SOD PHOSPHATE 10 MG/ML 1 ML VIAL IV PRN (08:30)
[2024-08-28] MEDS: KETOROLAC 15 MG/ML 1 ML VIAL IVP PRN (08:30)
[2024-08-28] MEDS: ONDANSETRON 4 MG/2 ML VIAL IVP PRN (08:30)
[2024-08-28] MEDS: FAMOTIDINE 20 MG/2 ML VIAL IVP PRN (08:30)
[2024-08-28] MEDS: SCOPOLAMINE 1 MG/72 HR PATCH TRANSDERM STA (08:45)
[2024-08-28] MEDS: GABAPENTIN 300 MG CAP PO STA (09:10)
[2024-08-28] MEDS: MIDAZOLAM 2 MG/2 ML VIAL IV PRN (09:13)
[2024-08-28] MEDS: fentaNYL (PF) 50 MCG/ML 2 ML AMP IVP PRN (09:13)
[2024-08-28] MEDS: IV FLUID CONTINUATION 1,000 ML IV ONE (09:30)
--- NOTE | 2024-08-28 09:40 | P.ANPRN ---
Procedure Note - Anesthesia - Nerve Block Performed Left Adductor Canal Single Time Out Performed: Yes Date of Procedure: 08/28/24 Procedure Start Time: :12 Procedure Stop Time: :17 Location of Patient: PreOp Indication: Acute Post-Operative Pain, Requested by Surgeon Sedation Type: Sedate with meaningful contact maintained Preparation: Sterile Prep Position: Supine Needle Types: Pajunk Needle Gauge: 21 Ultrasound used to visualize needle placement: Yes Ultrasound used to observe medication spread: Yes Injectate: 0.5% Ropivacaine (see comment for volume) (20 ml + 10 ml NS + 4 mg Dexamethasone) Blood Aspirated: No Pain Paresthesia on Injection Noted: No Resistance on Injection: Normal Image Stored and Saved: Yes Events: Uneventful and Well Tolerated
--- NOTE | 2024-08-28 09:41 | P.ANPRN ---
Procedure Note - Anesthesia - Nerve Block Performed Left iPack Single Time Out Performed: Yes Date of Procedure: 08/28/24 Procedure Start Time: :18 Procedure Stop Time: : Location of Patient: PreOp Indication: Acute Post-Operative Pain, Requested by Surgeon Sedation Type: Sedate with meaningful contact maintained Preparation: Sterile Prep Position: Right Lateral Needle Types: [place]unk Needle Gauge: 21 Ultrasound used to visualize needle placement: Yes Ultrasound used to observe medication spread: Yes Injectate: 0.5% Ropivacaine (see comment for volume) (20 ml + 10 ml NS + 4 mg Dexamethasone) Blood Aspirated: No Pain Paresthesia on Injection Noted: No Resistance on Injection: Normal Image Stored and Saved: Yes Events: Uneventful and Well Tolerated
[2024-08-28] MEDS ORDERED: ROPIVACAINE 5 MG/ML 30 ML VIAL ONE (09:46)
[2024-08-28] MEDS ORDERED: PROPOFOL 10 MG/ML 20 ML VIAL IV ONE (09:46)
[2024-08-28] MEDS ORDERED: MIDAZOLAM 2 MG/2 ML VIAL ONE (09:46)
[2024-08-28] MEDS ORDERED: GLYCOPYRROLATE 0.2 MG/ML 2 ML VIAL ONE (09:46)
[2024-08-28] MEDS ORDERED: LIDOCAINE 1% INJ 10MG/ML (20 ML MDV) ONE (09:46)
[2024-08-28] MEDS ORDERED: TRANEXAMIC 1,000 MG/100ML-NACL PREMIX BAG ONE (09:46)
[2024-08-28] MEDS ORDERED: SODIUM CHLORIDE 0.9% (PF) 10 ML VIAL ONE (09:46)
[2024-08-28] MEDS ORDERED: SUCCINYLCHOLINE CHLORIDE 200 MG/10 ML VIAL IV ONE (09:46)
[2024-08-28] MEDS ORDERED: ROCURONIUM 10 MG/ML (5 ML VIAL) IV ONE (09:46)
[2024-08-28] MEDS ORDERED: NEOSTIGMINE 1 MG/ML 10 ML VIAL ONE (09:46)
[2024-08-28] MEDS ORDERED: fentaNYL (PF) 50 MCG/ML 2 ML AMP ONE (09:46)
[2024-08-28] MEDS ORDERED: DEXAMETHASONE SOD PHOSPHATE 4 MG/ML 1 ML VIAL ONE (09:46)
[2024-08-28] MEDS: ceFAZolin 3 GM in SODIUM CHLORIDE 0.9% 100 ML IVPB PRN (10:16)
[2024-08-28] MEDS: ROPIVACAINE/EPI/CLONIDINE/KET 50 ML SYRINGE MISCELLANE PRN (10:16)
[2024-08-28] MEDS: LACTATED RINGERS 1,000 ML IV ONE (11:15)
--- NOTE | 2024-08-28 11:41 | P.OP ---
Date of Procedure: 08/28/24 Preoperative Diagnosis: 1. Severe left knee osteoarthritis 2. BMI 49 Postoperative Diagnosis: Same Procedure(s) Performed: 1. Left total knee arthroplasty 2. Computer assisted musculoskeletal navigation using CT/MRI images 3. Application of negative pressure incisional wound VAC left knee, incision < 50sqcm, incision length 20cm Implants: 1. Jazz [employer] CR Femur Size #4 2. [employer]lon [place] Tibial Base Size #4 3. [employer] CS/PS poly Size #4, 9-mm 4. [place] Triathlon all poly patella, Size #32 Anesthesia: GETA, regional Surgeon: Juan Santos Allocation Analyst #1: Tigre Brasher Estimated Blood Loss (ml): 100 IV fluids (ml): 800 Pathology: none sent Condition: stable Disposition: PACU Indications for Procedure: I met with the patient preoperatively in the office setting and discussed treatment of their symptomatic knee arthritis. They failed a long course of nonsurgical treatment and elected to proceed with an elective total knee replacement. I discussed the potential risks and complications at length and gave them ample time to ask questions. Risks discussed included: risks from anesthesia, superficial site surgical infection, acute and/or chronic peripro sthetic joint infection, delayed wound healing, drainage, wound necrosis, instability, stiffness, stiffness requiring manipulation and/or revision surgery, damage to local blood vessels or nerves, aseptic loosening of the implants, extensor mechanism issues including disruption, patellar maltracking, avascular necrosis etc., continued or worsened knee pain, generalized dissatisfaction with surgical outcome, need for revision surgery, an inability to regain preinjury level of function, DVT, PE, other medical complications, and possibly loss of life or limb. The patient voiced their understanding that while these are the most common complications other less common complications are possible. They provided both their verbal and written consent to go forward with surgery. Operative Findings: Severe tricompartmental osteoarthritis Description of Procedure: The patient was identified in preoperative holding and the correct operative extremity was verified and marked with a marker. I reviewed the consent form with the patient at length. All of their questions were answered. The patient was given a block by anesthesia. They were then brought back to the operating room. They were transferred onto the operating room table where a general anesthetic, preoperative antibiotics, and tranexamic acid were administered by anesthesia. A tourniquet was applied to the proximal aspect of the operative extremity. The contralateral extremity was padded under the heel and secured to the operating room table with a nonsterile blue towel and tape. The ipsilateral arm was carefully draped across the patient's chest and secured with a pillow and foam. A post was applied over the lateral aspect of the ipsilateral thigh and a bolster was placed under the ipsilateral foot. I verified that the operative extremity was stable and the knee was flexed to 90. The operative extremity was then placed in a leg harper, nonsterile drapes were applied, and the extremity was prepped and draped sterilely in the standard sterile fashion. Prior to starting surgery timeout was performed identifying the correct patient, operative extremity, and procedure. The leg was then elevated, exsanguinated with an Esmarch bandage, and the tourniquet was inflated. An anterior midline incision was made sharply with a scalpel. Once I had dissected deep to the superficial fascial layer medial and lateral flaps were elevated. A medial parapatellar arthrotomy was created. Upon opening the knee joint there were diffuse arthritic changes in all 3 compartments. The anterior horn of the medial meniscus were sharply released and a medial release was performed around the posterior medial corner of the knee to facilitate retractor placement. The fat pad was excised with electrocautery. The patella was found to be severely arthritic and a provisional cut was made with a sagittal saw to facilitate mobilization of the extensor mechanism during the procedure. Remnants of the ACL and PCL were then excised from the notch. 4 mm pins were then placed within the incision in the medial distal femur and proximal tibia. Arrays were applied to the pins and I verified they were completely tightened. The knee was then registered with the ReferralMD robot and manipulations in implant position were made to balance the knee and opitmize implant position. Using the ReferralMD robotic saw all cuts were made in accordance with our plan. After all bony fragments had been removed the cuts were verified with the planar probe. The tibia was then subluxed forward and sized. The knee was brought into flexion and a lamina crop nutrition scientist was placed to allow removal of the meniscal remnants both medially and laterally as well as posterior osteophytes. Local anesthetic was then infiltrated around the joint capsule. Trial implants were then placed within the knee. Range of motion and collateral ligament tension was then evaluated. Adjustments in implant size and position were then made accordingly. Once the knee was felt to be appropriately balanced the Luigi pins were removed. The patella was then recut, sized, and punched. A trial patellar button was then placed. With the trial components in place, the patella tracked midline. The femur was then drilled and the trial component removed. The trial tibial component was then appropriately rotated, pinned, and prepared for the keel. All trial components were then removed from the knee. The knee was thoroughly irrigated with pulsatile lavage. Cement was prepared via vacuum mixing in a bowl on the back table. I then hand pressurized cement into the femur and tibia and placed the implants beginning with the tibial base tray and poly liner, femoral component, and finally the patellar button. All extruded cement was removed including from the pin sites. Once the cement had hardened the knee was evaluated one final time with the final polyethylene liner in place. The knee had full extension and flexion and felt stable to varus and valgus stress throughout the arc of motion. The tourniquet was released and with the tourniquet down the patella tracked midline. All bleeders were controlled with electrocautery. The knee was then soaked for 3 minutes with a dilute Betadine soak. The knee was thoroughly irrigated using 3 L of sterile saline and pulsatile lavage. A deep drain was placed. The extensor mechanism was then reapproximated using pop off Vicryl sutures followed by a running barbed suture. The knee was then closed in layers with a 0 strata fix for the deep fascial layer, 2-0 strata fix for the superficial subcutaneous layer and Monocryl and Steri-Strips for the skin. An incisional wound VAC was applied due to patient body habitus. It was hooked up to the cannister and had a good seal. I verified that all instrument, sponge, and sharp counts were correct. The patient was then transferred off the operating room table, extubated, and brought to recovery having tolerated the procedure well. Tigre Brasher PA-C was required as a skilled assistant plant manager due to the complexity of surgery for patient positioning, draping, exposure, retraction, closure of wound and application of dressing. PLAN: The patient can weight-bear as tolerated on the operative extremity. DVT prophylaxis with aspirin 81 mg twice a day based on preoperative risk stratification. Follow-up in the office in 2 weeks for wound check and x-rays of the knee including an AP and lateral.
[2024-08-28] MEDS ORDERED: NALOXONE 0.4 MG/ML 1 ML VIAL IV PRN (12:03)
[2024-08-28] MEDS ORDERED: NA PHOS,M-B/NA PHOS,DI-BA 133 ML ENEMA RECTAL PRN (12:03)
[2024-08-28] MEDS ORDERED: HYDROmorphone 0.5 MG/0.5 ML SYRINGE IVP PRN (12:03)
[2024-08-28] MEDS ORDERED: ACETAMINOPHEN TAB 325 MG TAB PO PRN (12:03)
[2024-08-28] MEDS ORDERED: HYDROcodone/APAP 5-325MG 1 EACH TAB PO PRN (12:03)
[2024-08-28] MEDS: HYDROmorphone 0.5 MG/0.5 ML SYRINGE IVP PRN (12:35)
--- NOTE | 2024-08-28 14:34 | XR ---
EXAMINATION TYPE: XR knee limited LT DATE OF EXAM: 08/28/2024 COMPARISON: 12/03/2020 CLINICAL INDICATION: Female, 49 years old with history of Evaluation for Postop abnormality and align ment; TECHNIQUE: 2 views FINDINGS: Images show placement of left total knee arthroplasty. Both distal femoral and proximal tib ial components of the prosthesis are well seated without periprosthetic fracture. Anterior soft tissu e swelling with soft minimal scattered soft tissue air related to recent operation. This seems to be a wound VAC anteriorly. Alignment grossly anatomic. IMPRESSION: Uncomplicated postoperative appearance left total knee arthroplasty. [facility], Workstation: [id number], 08/28/2024 2:31 PM
[2024-08-28] MEDS: HYDROcodone/APAP 10-325MG 1 EACH TAB PO PRN (16:00)
[2024-08-28] MEDS: SODIUM CHLORIDE 0.9% 1,000 ML IV SCH (16:01)
[2024-08-28] MEDS: ceFAZolin 3 GM in SODIUM CHLORIDE 0.9% 100 ML IVPB SCH (17:42)
[2024-08-28] MEDS: SENNOSIDES-DOCUSATE SODIUM 1 EACH TAB PO SCH (20:45)
[2024-08-28] MEDS: ASPIRIN 81 MG PO SCH (20:45)
[2024-08-28] MEDS ORDERED: ALBUTEROL NEBULIZED 2.5 MG/3 ML INHALATION PRN (22:05)
[2024-08-28] MEDS ORDERED: diphenhydrAMINE 25 MG CAP PO PRN (22:05)
[2024-08-28] MEDS: MULTIVITAMINS, THERA 1 EACH TAB PO SCH (23:00)
[2024-08-28] MEDS: METOPROLOL SUCCINATE (ER) 50 MG TAB.ER.24H PO SCH (23:00)
[2024-08-28] MEDS: VENLAFAXINE HCL ER 150 MG CAP PO SCH (23:01)
[2024-08-28] MEDS: HYDROmorphone 1 MG/ML 1 ML SYRINGE IVP PRN (23:30)
[2024-08-29] MEDS: LEVOTHYROXINE 125 MCG TAB PO SCH (05:09)
--- NOTE | 2024-08-29 07:56 | P.PN ---
Subjective Progress Note Date: 08/29/24 Patient is doing relatively well this morning. She states that her pain is controlled at this time, but has concerns that we discussed weaning her off IV Dilaudid. Objective - Vital Signs Vital signs: Vital Signs Temp 98.1 F 08/29/24 02:00 Pulse 70 08/29/24 02:00 Resp 18 08/29/24 02:00 BP 110/59 08/29/24 02:00 Pulse Ox 93 L 08/29/24 02:00 FiO2 Intake & Output 08/28/24 08/29/24 08/29/24 18:59 06:59 18:59 Intake Total 2049 1260 Output Total 100 Balance 1950 1260 Weight 131.7 kg Intake: IV 2049 Oral 1260 Output: Estimated Blood Loss 100 Other: # Voids 1 3 - Exam The patient appears comfortable. She is alert and oriented. She is able to answer questions. A focused exam of the left lower extremity was conducted. On inspection there is an intact incisional wound VAC. Her thigh and calf are soft. Femoral nerve function is intact. She is able to actively plantarflex and dorsiflex her ankle and her toes. Assessment and Plan Assessment: Postoperative day #1 status post left total knee replacement BMI 49 Plan: 1. Weightbearing as tolerated on the operative extremity. Up with assistance and a walker. 2. DVT prophylaxis with aspirin 81 mg twice a day 3. Physical therapy for gait training and mobilization 4. Leave surgical dressing in place. 5. Internal medicine for perioperative medical management 6. Disposition: Due to the patient's BMI and concerns for pain control perioperatively we will plan on keeping her an additional 24 hours. We discussed pain management this morning. We will work on weaning her off the IV Dilaudid to oral pain medications. Plan for discharge home tomorrow once she is more comfortable.
[2024-08-29] MEDS: PANTOPRAZOLE 40 MG TABLET PO SCH (08:57)
[2024-08-29] MEDS: hydrOXYzine pamoate 25 MG CAP PO PRN (08:57)
[2024-08-29] MEDS: oxyCODONE-APAP 5-325MG 1 EACH TAB PO PRN (08:57)
[2024-08-29] MEDS: lisinopriL 20 MG TAB PO SCH (08:57)
[2024-08-29 09:25] LABS: Basophils # (A) 0.02 X 10*3/uL (0.00-0.10); Basophils % (A) 0.1 %; Eosinophils # (A) 0.01 X 10*3/uL (0.04-0.35); Eosinophils % (A) 0.1 %; HCT 30.9 % (37.2-46.3); HGB 9.8 g/dL (12.0-15.0); Lymphocytes # (A) 1.38 X 10*3/uL (0.90-5.00); Lymphocytes % (A) 9.8 %; MCH 30.9 pg (27.0-32.0); MCHC 31.7 g/dL (32.0-37.0); MCV 97.5 FL (80.0-97.0); Mean Platelet Volume 9.7 FL (9.5-12.2); Monocytes # (A) 1.12 X 10*3/uL (0.20-1.00); Monocytes % (A) 7.9 %; NRBC Per 100 WBC 0 X 10*3/uL (0.00-0.01); Neutrophils # (A) 11.51 X 10*3/uL (1.80-7.70); Neutrophils % (A) 81.5 %; Platelet Count 310 X 10*3/uL (140-440); RBC 3.17 X 10*6/uL (4.10-5.20); WBC 14.12 X 10*3/uL (4.50-10.00)
[2024-08-29] MEDS: SYMBICORT 160-4.5 MCG INHALER INHALATION SCH (09:48)
[2024-08-29 10:18] LABS: BUN/Creat Ratio 22.67 Ratio (12.00-20.00); Blood Urea Nitrogen 20.4 mg/dL (9.0-27.0); Calcium 8.9 mg/dL (8.7-10.3); Carbon Dioxide 27.2 mmol/L (21.6-31.8); Chloride 98 mmol/L (96-109); Glucose 127 mg/dL (70-110); Magnesium 1.7 mg/dL (1.5-2.4); Potassium 4.4 mmol/L (3.5-5.5); Sodium 139 mmol/L (135-145)
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
[2024-08-29] MEDS: HYDROmorphone 0.5 MG/0.5 ML SYRINGE IVP PRN (18:04)
[2024-08-29 19:42] VITALS: RESP 16
[2024-08-29] MEDS: MONTELUKAST 10 MG TAB PO SCH (20:19)
--- NOTE | 2024-08-30 08:33 | P.DS ---
Providers Date of admission: Saturday08/28/2024 Attending physician: Juan Santos Consults: 08/28/24 12:03 Consult Physician Routine Consulting Provider: Becky Garcia Consult Reason/Comments: Postop medical management Do you want consulting provider notified?: Yes Primary care physician: Marce Childs [facility] Course: The patient is a very pleasant 49-year-old female who was admitted under my care this past Saturday. She had an uncomplicated total knee replacement. Following surgery she was transferred to the orthopedic floor. She received 2 doses of postoperative antibiotics. She was started on aspirin for DVT prophylaxis. Internal medicine was consulted and assisted with her perioperative medical management. She worked with physical therapy who ultimately recommended discharge home when her pain was controlled. On postoperative day #1 she had concerns about discharging due to elevated pain. She was kept an additional 24 hours for observation. The patient was seen on postoperative day #2 and was doing well. Her pain was much more tolerable. She was tolerating oral pain medications. She denied nausea or vomiting. Her incisional wound VAC was intact. Her thigh and calf were soft. Femoral nerve function was intact. She was able to actively plantarflex and dorsiflex her ankle and her toes. She was ultimately cleared to discharge home. Patient Condition at Discharge: Good Plan - Discharge Summary Discharge Rx Participant: Yes New Discharge Prescriptions: New HYDROcodone/APAP 5-325MG [[place] 5] 1 - 2 each PO Q6HR PRN #56 tab PRN Reason: Pain Sennosides-Docusate Sodium [Senokot-S] 1 tab PO BID PRN #60 tablet PRN Reason: Constipation Doxycycline Monohydrate 100 mg PO BID #30 cap Aspirin 81 mg PO BID #60 tab Diclofenac Sodium [Voltaren] 75 mg PO BID #60 tab Ondansetron [Zofran] 4 mg PO Q6HR PRN #30 tab PRN Reason: Nausea No Action Multivitamins, Thera [Multivitamin] 1 tab PO HS Montelukast [Singulair] 10 mg PO HS Metoprolol Succinate (ER) [Toprol Xl] 50 mg PO HS Lisinopril-Hctz 20-25 mg [Zestoretic 20-25] 1 tab PO DAILY diphenhydrAMINE HCL [Benadryl] 25 mg PO HS Albuterol Inhaler [Ventolin Hfa Inhaler] 1 - 2 puff INHALATION Q6H PRN PRN Reason: Shortness Of Breath Acetaminophen Tab [Tylenol Tab] 1,000 mg PO Q6HR Venlafaxine HCl ER [Effexor Xr] 150 mg PO HS Mometasone/Formoterol [Dulera 200 Mcg-5 Mcg Inhaler] 2 puff INHALATION BID Levothyroxine Sodium [Synthroid] 125 mcg PO DAILY Omeprazole 20 mg PO HS Discharge Medication List Metoprolol Succinate (ER) [Toprol Xl] 50 mg PO HS 04/01/16 [History] Montelukast [Singulair] 10 mg PO HS 04/01/16 [History] Multivitamins, Thera [Multivitamin] 1 tab PO HS 04/01/16 [History] Lisinopril-Hctz 20-25 mg [Zestoretic 20-25] 1 tab PO DAILY 03/19/18 [History] Acetaminophen Tab [Tylenol Tab] 1,000 mg PO Q6HR 08/25/24 [History] Albuterol Inhaler [Ventolin Hfa Inhaler] 1 - 2 puff INHALATION Q6H PRN 08/25/24 [History] Levothyroxine Sodium [Synthroid] 125 mcg PO DAILY 08/25/24 [History] Mometasone/Formoterol [Dulera 200 Mcg-5 Mcg Inhaler] 2 puff INHALATION BID 08/25/24 [History] Omeprazole 20 mg PO HS 08/25/24 [History] Venlafaxine HCl ER [Effexor Xr] 150 mg PO HS 08/25/24 [History] diphenhydrAMINE HCL [Benadryl] 25 mg PO HS 08/25/24 [History] Aspirin 81 mg PO BID #60 tab 08/28/24 [Rx] Diclofenac Sodium [Voltaren] 75 mg PO BID #60 tab 08/28/24 [Rx] HYDROcodone/APAP 5-325MG [[place] 5] 1 - 2 each PO Q6HR PRN #56 tab 08/28/24 [Rx] Ondansetron [Zofran] 4 mg PO Q6HR PRN #30 tab 08/28/24 [Rx] Sennosides-Docusate Sodium [Senokot-S] 1 tab PO BID PRN #60 tablet 08/28/24 [Rx] Doxycycline Monohydrate 100 mg PO BID #30 cap 08/30/24 [Rx] Follow up Appointment(s)/Referral(s): Juan Santos MD [Medical Doctor] - 2 Weeks Activity/Diet/Wound Care/Special Instructions: 1. Weight-bear as tolerated on your operative extremity unless instructed otherwise. Use a walker or other assistive device to ambulate. 2. Leave surgical dressing in place. If your dressing becomes saturated with blood, there is drainage, or the dressing becomes loose please contact the office. 3. It is okay to shower with your surgical dressing, but do not submerge in water (no hot tubs, bath's, swimming etc.) 4. Take your blood clot prevention medication as prescribed (aspirin, Eliquis, Xarelto, and Plavix are commonly prescribed medications for blood clot pre vention) 5. While taking [place] or Percocet for pain take a stool softener (Ex: Colace) and drink lots of water. 6. Keep all follow-up appointments as scheduled. You will usually be seen in 1-2 weeks following surgery. 7. Please contact the office with any questions or concerns [phone] Resume home omeprazole for GI prophylaxis Discharge Disposition: HOME WITH HOME HEALTH SERVICES
[2024-08-30 09:01] VITALS: BP 119/77; PULSE 90; TEMP 98
== END 2024-08-30 11:56 | disposition home health service (06) ==
LOC: OR 07:14 → 4SSUR 13:13 → OR 08-30 11:56
PROVIDERS: ATTEND Orthopaedic Surgery
DX: M17.12 Unilateral primary osteoarthritis, left knee (principal); E03.9 Hypothyroidism, unspecified; E66.9 Obesity, unspecified; F41.9 Anxiety disorder, unspecified; G47.30 Sleep apnea, unspecified; G89.18 Other acute postprocedural pain; I10 Essential (primary) hypertension; J45.909 Unspecified asthma, uncomplicated; K21.9 Gastro-esophageal reflux disease without esophagitis; Z68.42 Body mass index [BMI] 45.0-49.9, adult; Z79.51 Long term (current) use of inhaled steroids; Z79.82 Long term (current) use of aspirin; Z79.890 Hormone replacement therapy; Z79.899 Other long term (current) drug therapy; Z87.891 Personal history of nicotine dependence; Z96.652 Presence of left artificial knee joint
CPT/HCPCS: 0055T; 27447; 64447; 64999; S2900; 80048; 83735; 85025; 94640

== ENCOUNTER → 2024-12-21 | Outpatient (CLI) | payer OTHER ==
--- NOTE | 2024-12-21 11:25 | CT ---
INDICATION: Patient age:Female; 49 years old; Reason for study: [facility] Protocol for hip/knee replacement, M17.11 OSTEOARTHRITIS KNEE; [facility]. COMPARISON: None TECHNIQUE: Thin section axial CT imaging of the entire right lower extremity was performed per [facility] protocol, wi thout the administration of IV contrast. Additional axial images of the bilateral hips and ankles wit h other knee were also obtained. Reformatted images in coronal and sagittal views obtained. FINDINGS: There is no evidence of acute fracture or dislocation. The hips are grossly unremarkable. Calcification at the insertion of the left ischial tuberosity. Deg enerative changes of the pubic symphysis. Tricompartmental joint space narrowing with osteophytosis of the right knee. Consistent with moderate osteoarthritic changes. Small suprapatellar joint effusion. The ankles grossly unremarkable. Small bilateral posterior calcaneal and plantar calcaneal enthesophy kavya. Prominent left os trigonum. The visualized soft tissues appear grossly unremarkable within the limits of unenhanced CT. IMPRESSION: [facility] protocol for right knee joint replacement. [facility], , 12/21/2024 11:22 AM
== END | disposition home or self-care (01) ==
LOC: RADCTMAIN 10:32
PROVIDERS: ATTEND Orthopaedic Surgery
DX: M17.11 Unilateral primary osteoarthritis, right knee (principal); Z96.651 Presence of right artificial knee joint

== ENCOUNTER → 2024-12-21 | Outpatient (CLI) | payer OTHER ==
[2024-12-21 12:20] LABS: INR 0.9 (<1.2); Partial Thromboplastin Time 30.5 sec (22.0-30.0); Prothrombin Time 10.4 sec (10.0-12.5)
[2024-12-21 15:36] LABS: ALT 30 U/L (8-44); AST 23 U/L (13-35); Albumin 4.5 g/dL (3.8-4.9); Albumin/Globulin Ratio 1.73 Ratio (1.60-3.17); Alkaline Phosphatase 87 U/L (41-126); BUN/Creat Ratio 15.88 Ratio (12.00-20.00); Blood Urea Nitrogen 12.7 mg/dL (9.0-27.0); Calcium 10.2 mg/dL (8.7-10.3); Carbon Dioxide 30.1 mmol/L (21.6-31.8); Chloride 98 mmol/L (96-109); Globulin 2.6 g/dL (1.6-3.3); Glucose 109 mg/dL (70-110); Sodium 139 mmol/L (135-145); Total Bilirubin 0.3 mg/dL (0.3-1.2); Total Protein 7.1 g/dL (6.2-8.2)
[2024-12-21 15:42] LABS: HCT 36.6 % (37.2-46.3); HGB 11.6 g/dL (12.0-15.0); MCH 28.7 pg (27.0-32.0); MCHC 31.7 g/dL (32.0-37.0); MCV 90.6 FL (80.0-97.0); Mean Platelet Volume 9.9 FL (9.5-12.2); NRBC Per 100 WBC 0 X 10*3/uL (0.00-0.01); Platelet Count 316 X 10*3/uL (140-440); RBC 4.04 X 10*6/uL (4.10-5.20); RDW 14.1 % (11.5-14.5); WBC 8.01 X 10*3/uL (4.50-10.00)
== END | disposition home or self-care (01) ==
LOC: LABPAT 11:05
PROVIDERS: ATTEND Orthopaedic Surgery
DX: Z01.818 Encounter for other preprocedural examination (principal); Z22.322 Carrier or suspected carrier of Methicillin resistant Staphylococcus aureus
CPT/HCPCS: 80053; 83036; 85027; 85610; 85730; 87070; 93005

== ENCOUNTER 2025-01-20 13:31 | Day surgery (SDC) | payer OTHER ==
[2025-01-15 11:35] VITALS: BMI 53.1
[~2025-01-20 13:31] MED LIST changes: +ONDANSETRON 4 MG/2 ML VIAL IVP PRN; -VANCOMYCIN 1,000 MG in SODIUM CHLORIDE 0.9% 250 ML IVPB PRN; +fentaNYL (PF) 50 MCG/ML 2 ML AMP IV PRN
[2025-01-20] MEDS: IV FLUID CONTINUATION 1,000 ML IV ONE (13:49)
[2025-01-20] MEDS: LACTATED RINGERS 1,000 ML IV SCH (14:24)
[2025-01-20] MEDS: oxyCODONE ER 10 MG TAB.ER.12H PO PRN (14:24)
[2025-01-20] MEDS: ACETAMINOPHEN TAB 500 MG TAB PO PRN (14:24)
[2025-01-20] MEDS: DOCUSATE 100 MG CAP PO PRN (14:25)
[2025-01-20] MEDS: MIDAZOLAM 2 MG/2 ML VIAL IV ONE (14:27)
[2025-01-20] MEDS: fentaNYL (PF) 50 MCG/ML 2 ML AMP IVP STA (14:27)
[2025-01-20] MEDS ORDERED: LIDOCAINE 1% INJ 10MG/ML (20 ML MDV) ONE (14:41)
[2025-01-20] MEDS ORDERED: ROPIVACAINE 5 MG/ML 30 ML VIAL ONE (14:41)
[2025-01-20] MEDS ORDERED: TRANEXAMIC 1,000 MG/100ML-NACL PREMIX BAG ONE (14:41)
[2025-01-20] MEDS: FAMOTIDINE 20 MG/2 ML VIAL IVP PRN (14:41)
[2025-01-20] MEDS ORDERED: VASOPRESSIN 20 UNIT/ML 1 ML VIAL ONE (14:41)
[2025-01-20] MEDS ORDERED: NEOSTIGMINE 1 MG/ML 10 ML VIAL ONE (14:41)
[2025-01-20] MEDS ORDERED: SUCCINYLCHOLINE CHLORIDE 200 MG/10 ML VIAL IV ONE (14:41)
[2025-01-20] MEDS ORDERED: WATER FOR INJECTION, STERILE 10 ML VIAL IV ONE (14:41)
[2025-01-20] MEDS ORDERED: MIDAZOLAM 2 MG/2 ML VIAL ONE (14:41)
[2025-01-20] MEDS ORDERED: fentaNYL (PF) 50 MCG/ML 2 ML AMP ONE (14:41)
[2025-01-20] MEDS ORDERED: PROPOFOL 10 MG/ML 20 ML VIAL IV ONE (14:41)
[2025-01-20] MEDS ORDERED: SODIUM CHLORIDE 0.9% (PF) 10 ML VIAL ONE (14:41)
[2025-01-20] MEDS ORDERED: ROCURONIUM 10 MG/ML (5 ML VIAL) IV ONE (14:41)
[2025-01-20] MEDS ORDERED: DEXAMETHASONE SOD PHOSPHATE 4 MG/ML 1 ML VIAL ONE (14:41)
[2025-01-20] MEDS ORDERED: GLYCOPYRROLATE 0.2 MG/ML 2 ML VIAL ONE (14:41)
[2025-01-20] MEDS ORDERED: PHENYLEPHRINE-0.9% NACL SYG 1,000 MCG/10 ML SYRINGE ONE (14:41)
[2025-01-20] MEDS: DEXAMETHASONE SOD PHOSPHATE 10 MG/ML 1 ML VIAL IV PRN (14:42)
[2025-01-20] MEDS: ONDANSETRON 4 MG/2 ML VIAL IVP ONE (14:42)
[2025-01-20] MEDS: KETOROLAC 15 MG/ML 1 ML VIAL IVP PRN (14:42)
[2025-01-20] MEDS: ceFAZolin 3 GM in SODIUM CHLORIDE 0.9% 100 ML IVPB PRN (14:49)
--- NOTE | 2025-01-20 15:16 | P.ANPRN ---
Procedure Note - Anesthesia - Nerve Block Performed Right iPack Single Time Out Performed: Yes ([id number]) Date of Procedure: 01/20/25 Procedure Start Time: 14:34 Procedure Stop Time: 14:37 Location of Patient: PreOp Indication: Acute Post-Operative Pain, Requested by Surgeon Specifically requested for management of pain by DrCatrachito: Juan Santos Sedation Type: Sedate with meaningful contact maintained Preparation: Sterile Prep Position: Supine Catheter: None Needle Types: Pajunk Needle Gauge: 21 Ultrasound used to visualize needle placement: Yes Ultrasound used to observe medication spread: Yes Injectate: 0.5% Ropivacaine (see comment for volume) (20cc+10cc nacl pf+decadron 4mg) Blood Aspirated: No Pain Paresthesia on Injection Noted: No Resistance on Injection: Normal Image Stored and Saved: Yes Events: Uneventful and Well Tolerated
--- NOTE | 2025-01-20 15:16 | P.ANPRN ---
Procedure Note - Anesthesia - Nerve Block Performed Right Adductor Canal Single Time Out Performed: Yes ([id number]) Date of Procedure: 01/20/25 Procedure Start Time: 14:28 Procedure Stop Time: 14:33 Location of Patient: PreOp Indication: Acute Post-Operative Pain, Requested by Surgeon Specifically requested for management of pain by DrCatrachito: Juan Santos Sedation Type: Sedate with meaningful contact maintained Preparation: Sterile Prep Position: Supine Catheter: None Needle Types: Pajunk Needle Gauge: 21 Ultrasound used to visualize needle placement: Yes Ultrasound used to observe medication spread: Yes Injectate: 0.5% Ropivacaine (see comment for volume) (20cc+10cc nacl pf+decadron 4mg) Blood Aspirated: No Pain Paresthesia on Injection Noted: No Resistance on Injection: Normal Image Stored and Saved: Yes Events: Uneventful and Well Tolerated
[2025-01-20] MEDS: ROPIVACAINE/EPI/CLONIDINE/KET 50 ML SYRINGE MISCELLANE PRN (15:25)
[2025-01-20] MEDS ORDERED: hydrOXYzine pamoate 25 MG CAP PO PRN (16:55)
[2025-01-20] MEDS ORDERED: MAGNESIUM HYDROXIDE 2,400 MG/30 ML CUP PO PRN (16:55)
[2025-01-20] MEDS ORDERED: NA PHOS,M-B/NA PHOS,DI-BA 133 ML ENEMA RECTAL PRN (16:55)
[2025-01-20] MEDS ORDERED: bisacodyL 10 MG SUPP RECTAL PRN (16:55)
[2025-01-20] MEDS ORDERED: HYDROmorphone 0.5 MG/0.5 ML SYRINGE IVP PRN (16:55)
[2025-01-20] MEDS ORDERED: TEMAZEPAM 15 MG CAP PO PRN ×2 (16:55→22:00)
[2025-01-20] MEDS ORDERED: diazePAM 5 MG TAB PO PRN ×2 (16:55)
[2025-01-20] MEDS ORDERED: HYDROcodone/APAP 5-325MG 1 EACH TAB PO PRN (16:55)
[2025-01-20] MEDS ORDERED: NALOXONE 0.4 MG/ML 1 ML VIAL IV PRN (16:55)
[2025-01-20] MEDS ORDERED: ONDANSETRON 4 MG/2 ML VIAL IVP PRN (16:55)
--- NOTE | 2025-01-20 16:55 | P.OP ---
Date of Procedure: 01/20/25 Preoperative Diagnosis: 1. Severe right knee osteoarthritis 2. Prior left total knee replacement 3. BMI 54 Postoperative Diagnosis: Same Procedure(s) Performed: 1. Right total knee arthroplasty 2. Computer assisted musculoskeletal navigation using CT/MRI images 3. Application of negative pressure incisional wound VAC, right knee, DME, less than 50 cm, incision measuring 20 cm Implants: 1. Jazz Tri[employer]lon CR/PS Femur Size #4 2. Jazz [employer]lon Imbler Tibial Base Size #4 3. [place] [employer] CS poly Size #4, 9-mm 4. [place] Tri[employer]lon all poly patella, Size #32 Anesthesia: GETA, regional Surgeon: Juan Santos Tree Thinner #1: Tigre Brasher Estimated Blood Loss (ml): 100 IV fluids (ml): 800 Pathology: none sent Condition: stable Disposition: PACU Indications for Procedure: The patient is a very pleasant 49-year-old female who previously underwent a left total knee replacement. She did very well with this. She went on to develop severe right knee pain that was refractory to nonsurgical treatment. She had an elevated BMI and understands her risk of complication particularly infection and mechanical failure of her knee replacement. She elected to proceed with total knee replacement understanding her elevated risk of having a complication due to her weight. We discussed weight loss but the patient felt she was unable to lose more weight prior to surgery. Having done well after her contralateral knee replacement I agreed to perform surgery. I met with the patient preoperatively in the office setting and discussed treatment of their symptomatic knee arthritis. They failed a long course of nonsurgical treatment and elected to proceed with an elective total knee replacement. I discussed the potential risks and complications at length and gave them ample time to ask questions. Risks discussed included: risks from anesthesia, superficial site surgical infection, acute and/or chronic periprosthetic joint infection, delayed wound healing, drainage, wound necrosis, instability, stiffness, stiffness requiring manipulation and/or revision surgery, damage to local blood vessels or nerves, aseptic loosening of the implants, extensor mechanism issues including disruption, patellar maltracking, avascular necrosis etc., continued or worsened knee pain, generalized dissatisfaction with surgical outcome, need for revision surgery, an inability to regain preinjury level of function, DVT, PE, other medical complications, and possibly loss of life or limb. The patient voiced their understanding that while these are the most common complications other less common complications are possible. They provided both their verbal and written consent to go forward with surgery. Operative Findings: Severe tricompartmental osteoarthritis with complete loss of joint space. Description of Procedure: The patient was identified in preoperative holding and the correct operative extremity was verified and marked with a marker. I reviewed the consent form with the patient at length. All of their questions were answered. The patient was given a block by anesthesia. They were then brought back to the operating room. They were transferred onto the operating room table where a general anesthetic, preoperative antibiotics, and tranexamic acid were administered by anesthesia. A tourniquet was applied to the proximal aspect of the operative extremity. The contralateral extremity was padded under the heel and secured to the operating room table with a nonsterile blue towel and tape. The ipsilateral arm was carefully draped across the patient's chest and secured with a pillow and foam. A post was applied over the lateral aspect of the ipsilateral thigh and a bolster was placed under the ipsilateral foot. I verified that the operative extremity was stable and the knee was flexed to 90. The operative extremity was then placed in a leg harper, nonsterile drapes were applied, and the extremity was prepped and draped sterilely in the standard sterile fashion. Prior to starting surgery timeout was performed identifying the correct patient, operative extremity, and procedure. The leg was then elevated, exsanguinated with an Esmarch bandage, and the tourniquet was inflated. An anterior midline incision was made sharply with a scalpel. Once I had dissected deep to the superficial fascial layer medial and lateral flaps were elevated. A medial parapatellar arthrotomy was created. Upon opening the knee joint there were diffuse arthritic changes in all 3 compartments. The anterior horn of the medial meniscus were sharply released and a medial release was performed around the posterior medial corner of the knee to facilitate retractor placement. The fat pad was excised with electrocautery. Remnants of the ACL and PCL were then excised from the notch. 4 mm pins were then placed within the incision in the medial distal femur and proximal tibia. Arrays were applied to the pins and I verified they were completely tightened. The knee was then registered with the TellFi robot and manipulations in implant position were made to balance the knee and opitmize implant position. Using the Luigi robotic saw all cuts were made in accordance with our plan. After all bony fragments had been removed the cuts were verified with the planar probe. The tibia was then subluxed forward and sized. The knee was brought into flexion and a lamina benefits administrator was placed to allow removal of the meniscal remnants both medially and laterally as well as posterior osteophytes. Local anesthetic was then infiltrated around the joint capsule. Trial implants were then placed within the knee. Range of motion and collateral ligament tension was then evaluated. Adjustments in implant size and position were then made accordingly. Once the knee was felt to be appropriately balanced the Luigi pins were removed. The patella was then cut, sized, and punched. A trial patellar button was then placed. With the trial components in place, the patella tracked midline. The femur was then drilled and the trial component removed. The trial tibial component was then appropriately rotated, pinned, and prepared for the keel. All trial components were then removed from the knee. The knee was thoroughly irrigated with pulsatile lavage. Cement was prepared via vacuum mixing in a bowl on the back table. Once the cement had reached appropriate consistency, I hand pressurized cement into the tibia and gently impacted the tibial implant into place. Cement was carefully removed from around the tibial tray and the poly liner was tapped into placed, engaging the locking mechanism. The femur was then exposed and cement was hand pressurized into the cut surfaces. The femoral implant was gently tapped into place and cement was carefully removed. A wet lap sponge was used to wipe down the bearing surface of the femur and the knee was extended to further pressurize cement. With the knee extended, cement was pressurized into the cut surface of the patella and the patella button was placed and compressed with a clamp. All extruded cement was removed including from the pin sites. The knee was held in extension until the cement had fully hardened. Once the cement had hardened the knee was evaluated one final time with the final polyethylene liner in place. The knee had full extension and f lexion and felt stable to varus and valgus stress throughout the arc of motion. The tourniquet was released and with the tourniquet down the patella tracked midline. All bleeders were controlled with electrocautery. The knee was then soaked for 3 minutes with a dilute Betadine soak. The knee was thoroughly irrigated using 3 L of sterile saline and pulsatile lavage. The extensor mechanism was then reapproximated using pop off Vicryl sutures followed by a running barbed suture. The knee was then closed in layers with a 0 strata fix for the deep fascial layer, 2-0 strata fix for the superficial subcutaneous layer and Monocryl. Due to the patient's body habitus an incisional wound VAC was applied over her closed incision. I verified that all instrument, sponge, and sharp counts were correct. The patient was then transferred off the operating room table, extubated, and brought to recovery having tolerated the procedure well. Tigre Brasher PA-C was required as a skilled museum assistant due to the complexity of surgery for patient positioning, draping, exposure, retraction, closure of wound and application of dressing. PLAN: The patient can weight-bear as tolerated on the operative extremity. DVT prophylaxis with aspirin 81 mg twice a day based on preoperative risk stratification. Follow-up in the office in 2 weeks for wound check and x-rays of the knee including an AP and lateral.
[2025-01-20] MEDS: LACTATED RINGERS 1,000 ML IV ONE (17:16)
[2025-01-20] MEDS: HYDROmorphone 0.5 MG/0.5 ML SYRINGE IVP PRN (17:29)
[2025-01-20] MEDS: HYDROmorphone 0.5 MG/0.5 ML SYRINGE IVP ONE (17:40)
--- NOTE | 2025-01-20 18:09 | XR ---
EXAMINATION TYPE: XR knee limited RT DATE OF EXAM: 01/20/2025 5:42 PM COMPARISON: None. CLINICAL INDICATION: Female, 49 years old with history of Evaluation for Postop abnormality and align ment, pain TECHNIQUE: 2 view(s) obtained. FINDINGS: Tibial femoral component in place. No acute fracture or dislocation is evident. Postsurgical soft tis yoandy changes are evident. IMPRESSION: 1. No acute fracture post knee replacement [facility], , 01/20/2025 6:06 PM
[2025-01-20] MEDS: DEXAMETHASONE SOD PHOSPHATE 4 MG/ML 1 ML VIAL IV ONE (19:39)
[2025-01-20] MEDS: ASPIRIN 81 MG PO SCH (21:07)
[2025-01-20] MEDS: HYDROcodone/APAP 10-325MG 1 EACH TAB PO PRN (21:07)
[2025-01-20] MEDS: SENNOSIDES-DOCUSATE SODIUM 1 EACH TAB PO SCH (21:08)
[2025-01-20] MEDS: SODIUM CHLORIDE 0.9% 1,000 ML IV SCH (21:09)
[2025-01-20] MEDS: ceFAZolin 3 GM in SODIUM CHLORIDE 0.9% 100 ML IVPB SCH (23:02)
[2025-01-20] MEDS: HYDROmorphone 1 MG/ML 1 ML SYRINGE IVP PRN (23:10)
[2025-01-20] MEDS ORDERED: ALBUTEROL NEBULIZED 2.5 MG/3 ML INHALATION PRN (23:11)
[2025-01-20] MEDS: MONTELUKAST 10 MG TAB PO SCH (23:22)
[2025-01-20] MEDS: VENLAFAXINE HCL ER 150 MG CAP PO SCH (23:22)
[2025-01-20] MEDS: ACETAMINOPHEN TAB 500 MG TAB PO SCH (23:23)
[2025-01-20] MEDS: METOPROLOL SUCCINATE (ER) 50 MG TAB.ER.24H PO SCH (23:26)
[2025-01-21] MEDS: LEVOTHYROXINE 125 MCG TAB PO SCH (05:55)
--- NOTE | 2025-01-21 07:50 | P.PN ---
Subjective Progress Note Date: 01/21/25 No acute events overnight. Patient is doing well this morning. The pain in their knee is moderate to severe. They have walked to the bathroom with a walker and assistance. They deny chest pain or shortness of breath. Objective - Vital Signs Vital signs: Vital Signs Temp 97.5 F L 01/21/25 01:22 Pulse 97 01/21/25 01:22 Resp 18 01/21/25 01:22 BP 97/45 01/21/25 01:22 Pulse Ox 97 01/21/25 01:22 FiO2 Intake & Output 01/20/25 01/21/25 01/21/25 18:59 06:59 18:59 Intake Total 1300 Output Total 200 Balance 1100 Weight 142.6 kg Intake: IV 1300 Output: Estimated Blood Loss 200 Other: Voiding Method Toilet # Voids 1 - Exam Patient was examined at bedside. Patient is resting comfortably in bed. No apparent distress. They are awake, alert and able to answer questions. Inspection: The surgical wound VAC dressing is intact, there is no drainage or strikethrough. The skin surrounding the dressing is free of erythema. There is mild swelling in the operative thigh. Palpation: The operative calf is soft to compression. No calf tenderness. Neurovascular: Operative femoral nerve function is intact. The patient is able to actively plantarflex and dorsiflex their operative ankle and toes. Operative extremity sensation is intact to light touch throughout. Their operative foot appears well perfused, palpable dorsalis pedis pulse, and capillary refill under 2 seconds. Assessment and Plan Assessment: Postop day #1 status post right total knee arthroplasty for severe right knee osteoarthritis Right knee pain Plan: Weight-bear as tolerated on the operative extremity. Use a walker to ambulate. Leave surgical wound VAC dressing in place. Physical therapy for gait training and mobilization. We appreciate internal medicine for perioperative medical management. Disposition: Pending physical therapy. Plan on staying until tomorrow for pain control.
[2025-01-21] MEDS: SYMBICORT 160-4.5 MCG INHALER INHALATION SCH (08:35)
[2025-01-21 08:51] LABS: HCT 32.4 % (37.2-46.3); HGB 10.1 g/dL (12.0-15.0); MCH 29.3 pg (27.0-32.0); MCHC 31.2 g/dL (32.0-37.0); MCV 93.9 FL (80.0-97.0); Mean Platelet Volume 9.7 FL (9.5-12.2); Platelet Count 271 X 10*3/uL (140-440); RBC 3.45 X 10*6/uL (4.10-5.20); RDW 14.6 % (11.5-14.5); WBC 14.84 X 10*3/uL (4.50-10.00)
[2025-01-21 08:52] LABS: Basophils # (A) 0.03 X 10*3/uL (0.00-0.10); Basophils % (A) 0.2 %; Eosinophils # (A) 0 X 10*3/uL (0.04-0.35); Eosinophils % (A) 0 %; Lymphocytes # (A) 0.89 X 10*3/uL (0.90-5.00); Monocytes # (A) 0.48 X 10*3/uL (0.20-1.00); Monocytes % (A) 3.2 %; NRBC Per 100 WBC 0 X 10*3/uL (0.00-0.01); Neutrophils # (A) 13.37 X 10*3/uL (1.80-7.70); Neutrophils % (A) 90.1 %
--- NOTE | 2025-01-21 12:55 | P.CONS ---
History of Present Illness - Reason for Consult Consult date: 01/21/25 Medical management - History of Present Illness History of present illness; patient 49-year-old lady with past medical history significant for left knee arthroplasty, obesity who presented to the hospital for elective right total knee arthroplasty. Patient underwent left knee arthroplasty in the beginning of the year and that went very well. Patient has been having issues with her right knee and has been following up outpatient with orthopedics and they recommended right total knee arthroplasty which was scheduled for 01/20. Postoperatively intermittently requested for medical management REVIEW OF SYSTEMS: CONSTITUTIONAL: No fever, no malaise, no fatigue. HEENT: No recent visual problems or hearing problems. Denied any sore throat. CARDIOVASCULAR: No chest pain, orthopnea, PND, no palpitations, no syncope. PULMONARY: No shortness of breath, no cough, no hemoptysis. GASTROINTESTINAL: No diarrhea, no nausea, no vomiting, no abdominal pain. NEUROLOGICAL: No headaches, no weakness, no numbness. HEMATOLOGICAL: Denies any bleeding or petechiae. GENITOURINARY: Denies any burning micturition, frequency, or urgency. MUSCULOSKELETAL/RHEUMATOLOGICAL: Right knee pain ENDOCRINE: Denies any polyuria or polydipsia. The rest of the 14-point review of systems is negative. PHYSICAL EXAMINATION: GENERAL: The patient is alert and oriented x3, not in any acute distress. Well developed, well nourished. HEENT: Pupils are round and equally reacting to light. EOMI. No scleral icterus. No conjunctival pallor. Normocephalic, atraumatic. No pharyngeal erythema. No thyromegaly. CARDIOVASCULAR: S1 and S2 present. No murmurs, rubs, or gallops. PULMONARY: Chest is clear to auscultation, no wheezing or crackles. ABDOMEN: Soft, nontender, nondistended, normoactive bowel sounds. No palpable organomegaly. MUSCULOSKELETAL: Right knee surgical incision seen EXTREMITIES: No cyanosis, clubbing, or pedal edema. NEUROLOGICAL: Gross neurological examination did not reveal any focal deficits. SKIN: No rashes. Assessment and plan Right knee osteoarthritis status post right total knee arthroplasty Obesity BMI of 54 Monitor vital signs Monitor CBC Continue pain management per orthopedics Continue DVT prophylaxis per orthopedics Aggressive bowel regimen to prevent opioid-induced constipation Resume Toprol Resume Synthroid Resume breathing treatments with albuterol and home inhalers of Dulera PT and OT consulted Labs and medication were reviewed.. Continue same treatment. Continue with symptomatic treatment. Resume home medication. Monitor labs and vitals. DVT and GI prophylaxis. Further recommendations as per clinical course of the patient Dictation was produced using Kiko dictation software. please excuse any grammatical, word or spelling errors. Past Medical History Past Medical History: Asthma, GERD/Reflux, Hypertension, Osteoarthritis (OA), Thyroid Disorder History of Any Multi-Drug Resistant Organisms: None Reported Past Surgical History: Cholecystectomy, Joint Replacement, Orthopedic Surgery Additional Past Surgical History / Comment(s): BILAT KNEES SX,. LT TKA. COLONOSCOPY Past Anesthesia/Blood Transfusion Reactions: No Reported Reaction Past Psychological History: Anxiety, Depression Smoking Status: Former smoker Past Alcohol Use History: Occasional Additional Past Alcohol Use History / Comment(s): QUIT SMOKING 2001 Past Drug Use History: Marijuana Additional Drug Use History / Comment(s): USES MARIJUANA EDIBLES AND VAP PEN- AWARE NO USE FOR AT LEAST 24 HOURS PRIOR TO PROCEDURE - Past Family History Mother Family Medical History: Cancer Medications and Allergies Home Medications Medication Instructions Recorded Confirmed Type Metoprolol Succinate (ER) [Toprol 50 mg PO HS 04/01/16 01/20/25 History Xl] Montelukast [Singulair] 10 mg PO HS 04/01/16 01/20/25 History Multivitamins, Thera [Multivitamin] 1 tab PO HS 04/01/16 01/20/25 History Lisinopril-Hctz 20-25 mg 1 tab PO DAILY 03/19/18 01/20/25 History [Zestoretic 20-25] Acetaminophen Tab [Tylenol Tab] 1,000 mg PO Q6HR 08/25/24 01/20/25 History Albuterol Inhaler [Ventolin Hfa 1 - 2 puff INHALATION Q6H PRN 08/25/24 01/20/25 History Inhaler] Levothyroxine Sodium [Synthroid] 125 mcg PO DAILY 08/25/24 01/20/25 History Mometasone/Formoterol [Dulera 200 2 puff INHALATION BID 08/25/24 01/20/25 History Mcg-5 Mcg Inhaler] Omeprazole 20 mg PO HS 08/25/24 01/20/25 History Venlafaxine HCl ER [Effexor Xr] 150 mg PO HS 08/25/24 01/20/25 History diphenhydrAMINE HCL [Benadryl] 25 mg PO HS 08/25/24 01/20/25 History Diclofenac Sodium [Voltaren] 75 mg PO BID #60 tab 08/28/24 01/20/25 Rx Sennosides-Docusate Sodium 1 tab PO BID PRN #60 tablet 01/21/25 Rx [Senokot-S] Allergies Allergy/AdvReac Type Severity Reaction Status Date / Time latex AdvReac Rash/Hives Verified 01/20/25 13:55 Physical Exam Vitals: Vital Signs Temp Pulse Resp BP Pulse Ox 01/21/25 07:04 97.8 F 79 18 136/71 98 01/21/25 01:22 97.5 F L 97 18 97/45 97 01/20/25 21:15 87 111/71 94 L 01/20/25 21:01 97 121/72 90 L 01/20/25 20:45 98 128/73 89 L 01/20/25 20:30 93 132/72 95 01/20/25 20:15 98 128/72 95 01/20/25 20:00 92 144/74 97 01/20/25 19:45 94 134/80 94 L 01/20/25 19:34 97.4 F L 90 17 115/66 94 L 01/20/25 18:00 84 14 148/82 99 01/20/25 17:45 79 16 151/81 100 01/20/25 17:30 78 16 154/78 100 01/20/25 17:19 96.8 F L 82 16 147/82 100 01/20/25 14:42 80 14 116/76 100 01/20/25 14:37 77 15 118/73 100 01/20/25 14:32 78 16 117/83 100 01/20/25 13:49 98.5 F 81 16 143/68 99 Intake and Output 01/20/25 01/21/25 01/21/25 22:59 06:59 14:59 Intake Total 200 Output Total 200 Balance 0 Intake: IV 200 Output: Estimated Blood Loss 200 Other: Voiding Method Toilet Toilet # Voids 1 Weight 142.6 kg Results CBC & Chem 7: 01/21/25 02:59 Labs: Abnormal Lab Results - Last 24 Hours (Table) 01/21/25 Range/Units 02:59 WBC 14.84 H (4.50-10.00) X 10*3/uL RBC 3.45 L (4.10-5.20) X 10*6/uL Hgb 10.1 L (12.0-15.0) g/dL Hct 32.4 L (37.2-46.3) % MCHC 31.2 L (32.0-37.0) g/dL RDW 14.6 H (11.5-14.5) % Immature Gran # 0.07 H (0.00-0.04) X 10*3/uL Neutrophils # 13.37 H (1.80-7.70) X 10*3/uL Lymphocytes # 0.89 L (0.90-5.00) X 10*3/uL Eosinophils # 0 L (0.04-0.35) X 10*3/uL
[2025-01-21] MEDS: PANTOPRAZOLE 40 MG TABLET PO SCH (21:27)
[2025-01-22] MEDS: HYDROmorphone 0.5 MG/0.5 ML SYRINGE IVP PRN (09:11)
[2025-01-22] MEDS: LISINOPRIL-HCTZ 20-25 MG 1 EACH TAB PO SCH (09:12)
--- NOTE | 2025-01-22 09:47 | P.DS ---
Providers Attending physician: Juan Santos Consults: 01/20/25 16:55 Consult Physician Routine Consulting Provider: Becky Garcia Consult Reason/Comments: post op medical management Do you want consulting provider notified?: Yes Primary care physician: Marce Amadeo [facility] Course: This is a 49-year-old patient, with past medical history of severe right knee osteoarthritis, who failed nonsurgical conservative management. On 01/20/2025 the patient presented to the [facility] pre-op department for scheduled eder total knee arthroplasty with Dr. Santos. The patient tolerated the procedure well. The patient was transferred to the orthopedic floor. The patient had no acute events over night. The patient's pain has been well-controlled. Patient was examined at bedside. Patient is resting comfortably in bed. No apparent distress. They are awake, alert and able to answer questions. Inspection: The surgical dressing is intact, there is no drainage or strikethrough. The skin surrounding the dressing is free of erythema. There is mild swelling in the operative thigh. Palpation: The operative calf is soft to compression. No calf tenderness. Neurovascular: Operative femoral nerve function is intact. The patient is able to actively plantarflex and dorsiflex their operative ankle and toes. Operative extremity sensation is intact to light touch throughout. Their operative foot appears well perfused, palpable dorsalis pedis pulse, and capillary refill under 2 seconds. Patient worked with physical therapy and it was determined they could discharge home. Plan to discharge home today. Plan follow up in two weeks in our office. Please see med rec for a list of accurate medications. Dictation was produced using [employer]ppertino dictation software, please excuse any grammatical, word or spelling errors. Assessment: Postop day #2 status post right total knee arthroplasty for severe right knee osteoarthritis Right knee pain Plan - Discharge Summary Discharge Rx Participant: No New Discharge Prescriptions: New Sennosides-Docusate Sodium [Senokot-S] 1 tab PO BID PRN #60 tablet PRN Reason: Constipation No Action Multivitamins, Thera [Multivitamin] 1 tab PO HS Montelukast [Singulair] 10 mg PO HS Metoprolol Succinate (ER) [Toprol Xl] 50 mg PO HS Lisinopril-Hctz 20-25 mg [Zestoretic 20-25] 1 tab PO DAILY diphenhydrAMINE HCL [Benadryl] 25 mg PO HS Albuterol Inhaler [Ventolin Hfa Inhaler] 1 - 2 puff INHALATION Q6H PRN PRN Reason: Shortness Of Breath Acetaminophen Tab [Tylenol Tab] 1,000 mg PO Q6HR Venlafaxine HCl ER [Effexor Xr] 150 mg PO HS Mometasone/Formoterol [Dulera 200 Mcg-5 Mcg Inhaler] 2 puff INHALATION BID Levothyroxine Sodium [Synthroid] 125 mcg PO DAILY Omeprazole 20 mg PO HS Diclofenac Sodium [Voltaren] 75 mg PO BID #60 tab Discharge Medication List Metoprolol Succinate (ER) [Toprol Xl] 50 mg PO HS 04/01/16 [History] Montelukast [Singulair] 10 mg PO HS 04/01/16 [History] Multivitamins, Thera [Multivitamin] 1 tab PO HS 04/01/16 [History] Lisinopril-Hctz 20-25 mg [Zestoretic 20-25] 1 tab PO DAILY 03/19/18 [History] Acetaminophen Tab [Tylenol Tab] 1,000 mg PO Q6HR 08/25/24 [History] Albuterol Inhaler [Ventolin Hfa Inhaler] 1 - 2 puff INHALATION Q6H PRN 08/25/24 [History] Levothyroxine Sodium [Synthroid] 125 mcg PO DAILY 08/25/24 [History] Mometasone/Formoterol [Dulera 200 Mcg-5 Mcg Inhaler] 2 puff INHALATION BID 08/25/24 [History] Omeprazole 20 mg PO HS 08/25/24 [History] Venlafaxine HCl ER [Effexor Xr] 150 mg PO HS 08/25/24 [History] diphenhydrAMINE HCL [Benadryl] 25 mg PO HS 08/25/24 [History] Diclofenac Sodium [Voltaren] 75 mg PO BID #60 tab 08/28/24 [Rx] Sennosides-Docusate Sodium [Senokot-S] 1 tab PO BID PRN #60 tablet 01/21/25 [Rx] Follow up Appointment(s)/Referral(s): [facility], [NON-STAFF] - 1-2 Days ([facility] will call you to schedule your in home physical therapy visits. ) Juan Santos MD [Medical Doctor] - 2 Weeks Activity/Diet/Wound Care/Special Instructions: 1. Weight-bear as tolerated on your operative extremity unless instructed otherwise. Use a walker or other assistive device to ambulate. 2. Leave surgical dressing in place. If your dressing becomes saturated with blood, there is drainage, or the dressing becomes loose please contact the office. 3. It is okay to shower with your surgical dressing, but do not submerge in water (no hot tubs, bath's, swimming etc.) 4. Take your blood clot prevention medication as prescribed. Aspirin 81 mg twice daily for 30 days. Patient states they have at home and did not want prescription sent. 5. While taking Vidor or Percocet for pain take a stool softener (Ex: Colace) and drink lots of water. 6. Keep all follow-up appointments as scheduled. You will usually be seen in 1-2 weeks following surgery. 7. Please contact the office with any questions or concerns [phone] Discharge Disposition: HOME WITH HOME HEALTH SERVICES
[2025-01-22 10:14] VITALS: BP 156/69; PULSE 73; RESP 18; TEMP 97.5
== END 2025-01-22 11:50 | disposition home health service (06) ==
LOC: OR 13:31 → 4SSUR 17:16 → OR 01-22 11:50
PROVIDERS: ATTEND Orthopaedic Surgery
DX: M17.11 Unilateral primary osteoarthritis, right knee (principal); I10 Essential (primary) hypertension; J45.909 Unspecified asthma, uncomplicated; G89.18 Other acute postprocedural pain; F41.9 Anxiety disorder, unspecified; F32.A Depression, unspecified; E07.9 Disorder of thyroid, unspecified; E66.9 Obesity, unspecified; Z68.43 Body mass index [BMI] 50.0-59.9, adult; Z79.51 Long term (current) use of inhaled steroids; Z79.890 Hormone replacement therapy; Z79.899 Other long term (current) drug therapy; Z87.891 Personal history of nicotine dependence; Z90.49 Acquired absence of other specified parts of digestive tract
CPT/HCPCS: 0055T; 27447; 64447; 64473; 81025; 85025; 94640